=== PATIENT | female | born 1985 | race Caucasian/White ===

== ENCOUNTER 2016-09-18 15:35 | Inpatient (IN) | payer BC, MEDICAID ==
[2016-09-18 16:21] LABS: APPEARANCE,URINE SLIGHTLY-CLOUDY; BILIRUBIN,URINE NEGATIVE (NEGATIVE); GLUCOSE, URINE NEGATIVE (NEGATIVE); KETONES,URINE NEGATIVE (NEGATIVE); LEUKOCYTE ESTERASE,URINE NEGATIVE (NEGATIVE); NITRITE,URINE NEGATIVE (NEGATIVE); PROTEIN,URINE 30 mg/dL (NEGATIVE); URINE SPECIFIC GRAVITY 1.023; UROBILINOGEN,URINE NEGATIVE mg/dL (<2.0)
[2016-09-18 16:35] LABS: ABSOLUTE EOSINOPHILS # (AUTO) 0.1 10^3/uL (0.0-0.6); ABSOLUTE LYMPHOCYTES (AUTO) 1.7 10^3/uL (0.5-4.7); ABSOLUTE MONOCYTES (AUTO) 0.5 10^3/uL (0.1-1.4); ABSOLUTE NEUT (AUTO) 7.9 10^3/uL (1.7-8.2); BASOPHILS % (AUTO) 0.4 % (0-2); EOSINOPHILS % (AUTO) 0.7 % (0-6); HEMATOCRIT 31.9 % (36.0-47.0); HEMOGLOBIN 10.9 g/dL (12.0-15.5); HGB HCT DIFFERENCE 0.8; LYMPHOCYTES % (AUTO) 16.9 % (13-45); MEAN CORPUSCULAR HEMOGLOBIN 30.2 pg (27.0-33.4); MEAN CORPUSCULAR HGB CONC 34.4 g/dL (32.0-36.0); MEAN CORPUSCULAR VOLUME 88 fl (80-97); MONOCYTES % (AUTO) 4.7 % (3-13); RED BLOOD COUNT 3.62 10^6/uL (3.72-5.28); RED CELL DISTRIBUTION WIDTH 13.3 % (11.5-14.0); SEGMENTED NEUTROPHILS % (AUTO) 77.3 % (42-78); WHITE BLOOD COUNT 10.2 10^3/uL (4.0-10.5)
[2016-09-18 16:36] LABS: URINE BARBITURATES SCREEN NEGATIVE; URINE METHADONE SCREEN NEGATIVE; URINE OPIATES LOW NEGATIVE; URINE PHENCYCLIDINE SCREEN NEGATIVE
[2016-09-18] MEDS ORDERED: OXYTOCIN/NORMAL SALINE 20 UNIT/1,000 ML RTUINJ ONE (17:07)
--- NOTE | 2016-09-18 18:01 | L&D Flow Sheet ---
LD Flowsheet Datetime Report Generated by CPN: 09/18/2016 18:00 Datetime: 09/18/2016 17:51 NBP Sys/Kayleigh/Mean (mmHg): 105 (QS system process) : 57 (QS system process) : 75 (QS system process) Pulse: 86 (QS system process) Datetime: 09/18/2016 17:28 I/O Interventions: Up to BR (Beth Brad, RN) Datetime: 09/18/2016 17:21 NBP Sys/Kayleigh/Mean (mmHg): 104 (QS system process) : 62 (QS system process) : 78 (QS system process) Pulse: 87 (QS system process) Datetime: 09/18/2016 17:15 Monitor Mode: External; Palpation (Beth Salinas RN) Frequency (min): none (Beth Salinas, RN) Resting Tone (Palpate): Relaxed (Beth Salinas RN) Monitor Mode: External US (Beth Salinas RN) FHR Baseline Rate : 130 (Beth Salinas RN) FHR Baseline Changes: No Baseline Change (Beth Salinas RN) Variability: Moderate 6-25 bpm (Beth Salinas RN) Accelerations: 15X15 (Beth Salinas RN) Decelerations: None (Beth Salinas RN) Pitocin (milliunit): Pitocin Started (milliunits) @ 2; Pitocin 20 Units in 1000ml NS (Beth Salinas RN) Datetime: 09/18/2016 17:06 NBP Sys/Kayleigh/Mean (mmHg): 109 (QS system process) : 62 (QS system process) : 79 (QS system process) Pulse: 86 (QS system process) Datetime: 09/18/2016 16:51 NBP Sys/Kayleigh/Mean (mmHg): 102 (QS system process) : 55 (QS system process) : 74 (QS system process) Pulse: 84 (QS system process) Datetime: 09/18/2016 16:45 Monitor Mode: External; Palpation (Beth Salinas RN) Frequency (min): none (Beth Salinas RN) Resting Tone (Palpate): Relaxed (Beth Brad, RN) Monitor Mode: External US (Beth Salinas RN) FHR Baseline Rate : 130 (Beth Salinas, RN) FHR Baseline Changes: No Baseline Change (Beth Salinas RN) Variability: Moderate 6-25 bpm (Beth Salinas, RN) Accelerations: 15X15 (Beth Salinas, RN) Decelerations: None (Beth Salinas, RN) Datetime: 09/18/2016 16:43 Monitor Interventions for FHR: Ultrasound Adjusted (Beth Salinas RN) Communication Comments: Order received from Rhonda Conley CNM to start Pitocin 20 units in 1 L NS at 2 milliunits/min. Increase by 2 milliunits/min to a max of 20 milliunits/min or until adequate labor is reached (Beth Salinas RN) Datetime: 09/18/2016 16:38 NBP Sys/Kayleigh/Mean (mmHg): 105 (QS system process) : 65 (QS system process) : 79 (QS system process) Pulse: 87 (QS system process) Datetime: 09/18/2016 16:28 Resting Tone (Palpate): Relaxed (Beth Salinas RN) Monitor Mode: External US (Beth Salinas RN) Pain Scale: 0 (Beth Salinas RN) Pain Presence: None/Denies (Beth Salinas RN) Pain Type: N/A (Beth Salinas RN) Pain Goal: 1 (Beth Salinas RN) Pain Relief Measures: Comfort Measures (Beth Salinas RN) Membrane Status: Ruptured (Beth Salinas RN) Membranes Ruptured Date/Time: 09/18/2016 00:01 (Beth Salinas RN) Membranes Rupture Method: Spontaneous (Beth Salinas RN) Amniotic Fluid Color: Clear (Beth Salinas, RN) Amniotic Fluid Amount: Small (Beth Salinas RN) Amniotic Fluid Odor: Normal (Beth Salinas, RN) Vaginal Bleeding: None (Beth Salinas, SILVANO) Level of Consciousness: Fully Conscious (Beth Salinas, SILVANO) DTR's/Clonus: DTRs 2+; No Clonus (Beth Salinas, SILVANO) Headache: Denies (Beth Salinas, SILVANO) Breath Sounds, Left: Clear and Equal (Beth Salinas RN) Breath Sounds, Right: Clear and Equal (Beth Salinas, RN) Nausea/Vomiting: Denies (Beth Salinas, SILVANO) RUQ Epigastric Pain: Denies (Beth Salinas, RN) IV/Blood Work: IV Infusing per Order (Beth Salinas, SILVANO) Oxygen Method: Room Air (Beth Salinas RN) Patient Position/Activity: Left Tilt (Beth Salinas RN) I/O Interventions: Clear Liquids Given (Beth Salinas, SILVANO) Instructional Method: Verbal (Beth Salinas RN) Plan of Care: Plan of Care Discussed; Vaginal Delivery; Labor; Induction (Beth Salinas RN) Unit Routine: [place] to Room; Call [place]; Bed; Visiting Policy; Waiting Areas; Infant Security; Phone/Cell Phone Use; Photography; Unit Personnel; Handwashing; Monitoring (Beth Salinas RN) Labor/Induction: Labor Stages; Cervical Ripening (Beth Salinas RN) Pain Management: IV Narcotics (Beth Salinas RN) Datetime: 09/18/2016 16:26 Procedures: Consents Signed (Beth Salinas RN) Datetime: 09/18/2016 16:20 IV/Blood Work: IV Infusing per Order (Beth Salinas RN) IV/Blood Work: IV Started; IV Bolus Started (Beth Salinas RN) Datetime: 09/18/2016 16:17 IV/Blood Work: Labs Drawn (Beth Brad, RN) Datetime: 09/18/2016 16:15 Monitor Mode: External; Palpation (Beth Brad, RN) Frequency (min): none (Beth Brad, RN) Resting Tone (Palpate): Relaxed (Beth Brad, RN) Monitor Mode: External US (Beth Brad, RN) FHR Baseline Rate : 130 (Beth Brad, RN) FHR Baseline Changes: No Baseline Change (Beth Brad, RN) Variability: Moderate 6-25 bpm (Beth Brad, RN) Accelerations: 15X15 (Beth Brad, RN) Decelerations: None (Beth Brad, RN) Datetime: 09/18/2016 16:03 Communication Comments: patient sent from [facility] by Dr. Donnelly for positive Nitrazine, positive Fern, and pooling. Orders received for direct admission. Cervix in office was 2cm. Order received to start Pitocin without rechecking cervix (Beth Salinas RN)
[2016-09-18] MEDS ORDERED: AMPICILLIN SOD INJ 2 GM VIAL ONE (18:04)
[2016-09-18] MEDS ORDERED: RINGERS SOLUTION,LACTATED 1,000 ML IV PRN (18:12)
[2016-09-18] MEDS ORDERED: RINGERS SOLUTION,LACTATED 300 ML IV ONE (18:12)
[2016-09-18] MEDS ORDERED: OXYTOCIN/NORMAL SALINE 1,000 ML IV PRN (18:12)
--- NOTE | 2016-09-18 20:01 | L&D Flow Sheet ---
LD Flowsheet Datetime Report Generated by CPN: 09/18/2016 20:00 Datetime: 09/18/2016 19:52 NBP Sys/Kayleigh/Mean (mmHg): 94 (QS system process) : 58 (QS system process) : 72 (QS system process) Pulse: 75 (QS system process) LaborFlag: Antepartum (QS system process) Datetime: 09/18/2016 19:45 Stage of : Antepartum (Martha Azaleaichiwarner RN) Monitor Mode: External (Martha Errichiello, RN) Frequency (min): 2-4 (Martha Schwartz RN) Quality: Mild/Moderate (Martha Schwartz RN) Duration (sec): 50-70 (Martha Schwartz RN) Resting Tone (Palpate): Relaxed (Martha Schwartz RN) Monitor Mode: External US (Martha Schwartz RN) FHR Baseline Rate : 130 (Martha Schwartz RN) FHR Baseline Changes: No Baseline Change (Martha Schwartz RN) Variability: Moderate 6-25 bpm (Martha Schwartz RN) Accelerations: 15X15 (Martha Schwartz RN) Decelerations: None (Martha Schwartz RN) Pitocin (milliunit): Pitocin Remains (milliunits) @ 10 (Martha Schwartz RN) Communication: RN at Bedside; RN Reviewed Strip (Martha Schwartz RN) Datetime: 09/18/2016 19:37 NBP Sys/Kayleigh/Mean (mmHg): 100 (QS system process) : 62 (QS system process) : 74 (QS system process) Pulse: 71 (QS system process) LaborFlag: Antepartum (QS system process) Datetime: 09/18/2016 19:30 Stage of : Antepartum (Martha Schwartz RN) Temperature (F): 98.0 (Martha Schwartz RN) Temperature (C): 36.7 (QS system process) Frequency (min): 2-3 (Martha Schwartz RN) Duration (sec): 60-70 (Martha Schwartz RN) Monitor Mode: External US (Martha Schwartz RN) FHR Baseline Rate : 135 (Martha Schwartz RN) FHR Baseline Changes: No Baseline Change (Martha Schwartz RN) Variability: Moderate 6-25 bpm (Martha Schwartz RN) Accelerations: 15X15 (Martha Schwartz RN) Decelerations: None (Martha Schwartz RN) Level of Consciousness: Fully Conscious (Martha Schwartz RN) DTR's/Clonus: DTRs 2+; No Clonus (Martha Schwartz RN) Headache: Denies (Martha Schwartz RN) Breath Sounds, Left: Clear and Equal (Martha Schwartz RN) Breath Sounds, Right: Clear and Equal (Martha Schwartz RN) Nausea/Vomiting: Denies (Martha Schwartz RN) RUQ Epigastric Pain: Denies (Martha Schwartz RN) Pitocin (milliunit): Pitocin Increased to (milliunits) @ 10 (Martha Schwartz RN) Pitocin (milliunit): Pitocin Increased to (milliunits) @ (Annotations: 10) (Martha Schwartz RN) I/O Interventions: Up to BR (Martha Schwartz RN) Communication: RN at Bedside; RN Reviewed Strip (Martha Schwartz RN) LaborFlag: Antepartum (QS system process) Datetime: 09/18/2016 19:21 NBP Sys/Kayleigh/Mean (mmHg): 100 (QS system process) : 55 (QS system process) : 70 (QS system process) Pulse: 69 (QS system process) LaborFlag: Antepartum (QS system process) Datetime: 09/18/2016 19:15 Stage of : Antepartum (Martha Schwartz RN) Monitor Mode: External (Martha Schwartz RN) Frequency (min): x1 (Martha Schwartz RN) Quality: Mild (Martha Schwartz RN) Duration (sec): 90 (Martha Schwartz RN) Resting Tone (Palpate): Relaxed (Martha Schwartz RN) Monitor Mode: External US (Martha Schwartz RN) FHR Baseline Rate : 135 (Martha Schwartz RN) FHR Baseline Changes: No Baseline Change (Martha Schwartz RN) Variability: Moderate 6-25 bpm (Martha Schwartz RN) Accelerations: 15X15 (Martha Schwartz RN) Decelerations: None (Martha Schwartz RN) Pain Presence: Intermittent (Martha Schwartz RN) Pain Type: Contraction (Martha Schwartz RN) Pain Location: Abdomen (Martha Schwartz RN) Pain Relief Measures: Comfort Measures (Martha Schwartz RN) Pain Coping: Talking Through Contractions (Martha Schwartz RN) Pitocin (milliunit): Pitocin Remains (milliunits) @ 8 (Martha Schwartz RN) Patient Position/Activity: Left Tilt; Semi-Fowlers (Martha Schwartz RN) Comfort Measures: Breathing/Relaxation; Family Support (Martha Schwartz RN) Communication: RN Reviewed Strip (Martha Schwartz RN) LaborFlag: Antepartum (QS system process) Datetime: 09/18/2016 19:07 NBP Sys/Kayleigh/Mean (mmHg): 90 (QS system process) : 55 (QS system process) : 67 (QS system process) Pulse: 73 (QS system process) Datetime: 09/18/2016 19:01 Monitor Interventions for UA: [place] Adjusted (Beth Salinas RN) Datetime: 09/18/2016 19:00 Monitor Mode: External; Palpation (Beth Salinsa RN) Quality: Mild (Beth Salinas RN) Duration Criteria: Less than Two 120 Second Contractions (Beth Salinas RN) Pattern: Normal: <= 5 Contractions in 10 Minutes (Beth Salinas RN) Resting Tone (Palpate): Relaxed (Beth Salinas RN) Contraction Comments: difficult to trace contractions, RN at bedside palpating abdomen and adjusting monitor (Beth Salinas RN) Monitor Mode: External US (Beth Salinas RN) FHR Baseline Rate : 130 (Beth Salinas RN) FHR Baseline Changes: No Baseline Change (Beth Salinas RN) Variability: Moderate 6-25 bpm (Beth Salinas RN) Accelerations: 15X15 (Beth Salinas RN) Decelerations: None (Beth Salinas RN) Pitocin (milliunit): Pitocin Increased to (milliunits) @ 8 (Beth Salinas RN) Datetime: 09/18/2016 18:51 NBP Sys/Kayleigh/Mean (mmHg): 98 (QS system process) : 61 (QS system process) : 74 (QS system process) Pulse: 73 (QS system process) Datetime: 09/18/2016 18:45 Monitor Mode: External; Palpation (Beth Salinas RN) Frequency (min): 7-8 (Beth Salinas RN) Quality: Mild (Beth Salinas, SILVANO) Duration (sec): 70-80 (Beth Salinas, SILVANO) Duration Criteria: Less than Two 120 Second Contractions (Beth Salinas RN) Pattern: Normal: <= 5 Contractions in 10 Minutes (Beth Salinas RN) Resting Tone (Palpate): Relaxed (Beth Salinas, RN) Monitor Mode: External US (Beth Salinas, SILVANO) FHR Baseline Rate : 130 (Beth Salinas RN) FHR Baseline Changes: No Baseline Change (Beth Salinas RN) Variability: Moderate 6-25 bpm (Beth Salinas RN) Accelerations: 15X15 (Beth Salinas, RN) Decelerations: None (Beth Salinas, SILVANO) Pitocin (milliunit): Pitocin Remains (milliunits) @ (Annotations: 6) (Beth Salinas RN) Datetime: 09/18/2016 18:36 NBP Sys/Kayleigh/Mean (mmHg): 92 (QS system process) : 52 (QS system process) : 66 (QS system process) Pulse: 81 (QS system process) Datetime: 09/18/2016 18:30 Monitor Mode: External; Palpation (Beth Salinas RN) Frequency (min): 2.5-8 (Beth Salinas RN) Quality: Mild (Beth Salinas RN) Duration (sec): 70-80 (Beth Salinas RN) Duration Criteria: Less than Two 120 Second Contractions (Beth Salinas RN) Pattern: Normal: <= 5 Contractions in 10 Minutes (Beth Salinas RN) Resting Tone (Palpate): Relaxed (Beth Salinas RN) Monitor Mode: External US (Beth Salinas RN) FHR Baseline Rate : 135 (Beth Salinas RN) FHR Baseline Changes: No Baseline Change (Beth Salinas, SILVANO) Variability: Moderate 6-25 bpm (Beth Salinas RN) Accelerations: 15X15 (Beth Salinas RN) Decelerations: None (Beth Salinas, SILVANO) Pitocin (milliunit): Pitocin Remains (milliunits) @ (Annotations: 6) (Beth Salinas RN) Datetime: 09/18/2016 18:20 I/O Interventions: Up to BR (Beth Salinas, SILVANO) Datetime: 09/18/2016 18:15 Monitor Mode: External; Palpation (Beth Salinas RN) Frequency (min): 2-6 (Beth Salinas RN) Quality: Mild (Beth Salinas, SILVANO) Duration (sec): 60-110 (Beth Salinas, SILVANO) Duration Criteria: Less than Two 120 Second Contractions (Beth Salinas, SILVANO) Pattern: Normal: <= 5 Contractions in 10 Minutes (Beth Salinas, SILVANO) Resting Tone (Palpate): Relaxed (Beth Salinas, RN) Monitor Mode: External US (Beth Salinas, RN) FHR Baseline Rate : 130 (Beth Salinas, RN) FHR Baseline Changes: No Baseline Change (Beth Salinas, SILVANO) Variability: Moderate 6-25 bpm (Beth Salinas, RN) Accelerations: 15X15 (Beth Salinas, RN) Decelerations: None (Beth Salinas, RN) Pitocin (milliunit): Pitocin Increased to (milliunits) @ (Annotations: 6) (Beth Salinas RN) Antibiotics: Ampicillin IV 2 Gm (Beth Salinas, RN) Datetime: 09/18/2016 18:08 NBP Sys/Kayleigh/Mean (mmHg): 113 (QS system process) : 59 (QS system process) : 73 (QS system process) Pulse: 80 (QS system process) Datetime: 09/18/2016 18:00 Monitor Mode: External; Palpation (Beth Salinsa RN) Frequency (min): 2.5-3 (Beth Salinas RN) Quality: Mild (Beth Salinas RN) Duration (sec): 80-90 (Beth Salinas RN) Duration Criteria: Less than Two 120 Second Contractions (Beth Salinas RN) Pattern: Normal: <= 5 Contractions in 10 Minutes (Beth Salinas RN) Resting Tone (Palpate): Relaxed (Beth Salinas RN) Monitor Mode: External US (Beth Salinas RN) FHR Baseline Rate : 135 (Beth Salinas RN) FHR Baseline Changes: No Baseline Change (Beth Salinas RN) Variability: Moderate 6-25 bpm (Beth Salinas RN) Accelerations: 15X15 (Beth Salinas RN) Decelerations: None (Beth Salinas RN) Pitocin (milliunit): Pitocin Remains (milliunits) @ (Annotations: 4) (Beth Salinas RN)
--- NOTE | 2016-09-18 22:01 | L&D Flow Sheet ---
LD Flowsheet Datetime Report Generated by CPN: 09/18/2016 22:00 Datetime: 09/18/2016 21:51 NBP Sys/Kayleigh/Mean (mmHg): 84 (QS system process) : 48 (QS system process) : 61 (QS system process) Pulse: 65 (QS system process) LaborFlag: Antepartum (QS system process) Datetime: 09/18/2016 21:45 Stage of : Antepartum (Martha Azaleaichiwarner, RN) Monitor Mode: External (Martha Errichiello, RN) Frequency (min): 3 (Martha Schwartz RN) Quality: Mild/Moderate (Martha Schwartz RN) Duration (sec): 40-70 (Martha Schwartz RN) Resting Tone (Palpate): Relaxed (Martha Schwartz RN) Monitor Mode: External US (Martha Schwartz RN) Monitor Interventions for FHR: Ultrasound Adjusted (Martha Schwartz RN) FHR Baseline Rate : 135 (Martha Schwartz RN) FHR Baseline Changes: No Baseline Change (Martha Schwartz RN) Variability: Moderate 6-25 bpm (Martha Schwartz RN) Accelerations: 15X15 (Martha Schwartz RN) Decelerations: None (Martha Schwartz RN) Comments: RN at b/s adjusting US (Martha Schwartz RN) Pitocin (milliunit): Pitocin Remains (milliunits) @ 18 (Martha Schwartz RN) Patient Position/Activity: Left Lateral; Peanut Ball (Martha Schwartz RN) Communication: RN at Bedside; RN Reviewed Strip (Martha Schwartz RN) Datetime: 09/18/2016 21:36 NBP Sys/Kayleigh/Mean (mmHg): 84 (QS system process) : 53 (QS system process) : 64 (QS system process) Pulse: 65 (QS system process) LaborFlag: Antepartum (QS system process) Datetime: 09/18/2016 21:30 Stage of : Antepartum (Martha Schwartz RN) Monitor Mode: External (Martha Schwartz RN) Frequency (min): 3-4 (Martha Schwartz RN) Quality: Mild/Moderate (Martha Schwartz RN) Duration (sec): 50-70 (Martha Schwartz RN) Resting Tone (Palpate): Relaxed (Martha Schwartz RN) Monitor Mode: External US (Martha Schwartz RN) Monitor Interventions for FHR: Ultrasound Adjusted (Martha Schwartz RN) FHR Baseline Rate : 150 (Martha Schwartz RN) FHR Baseline Changes: No Baseline Change (Martha Schwartz RN) Variability: Moderate 6-25 bpm (Martha Schwartz RN) Accelerations: None (Martha Schwartz RN) Decelerations: None (Martha Schwartz RN) Comments: RN at b/s adjusting US (Martha Schwartz RN) Pain Presence: Intermittent (Martha Schwartz RN) Pain Type: Contraction (Martha Schwartz RN) Pain Location: Abdomen (Martha Schwartz RN) Pain Relief Measures: Comfort Measures (Martha Schwartz RN) Pain Coping: Talking Through Contractions (Martha Schwartz RN) Pitocin (milliunit): Pitocin Increased to (milliunits) @ 18 (Martha Schwartz RN) Patient Position/Activity: Left Lateral; Peanut Ball (Martha Schwartz RN) Comfort Measures: Breathing/Relaxation; Coaching; Family Support (Martha Schwartz RN) Communication: RN at Bedside; RN Reviewed Strip (MEME Adam LaborFlag: Antepartum (QS system process) Datetime: 09/18/2016 21:21 NBP Sys/Kayleigh/Mean (mmHg): 92 (QS system process) : 61 (QS system process) : 72 (QS system process) Pulse: 72 (QS system process) LaborFlag: Antepartum (QS system process) Datetime: 09/18/2016 21:15 Stage of : Antepartum (Martha Schwartz RN) Monitor Mode: External (Martha Schwartz RN) Monitor Interventions for UA: [place] Adjusted (Martha Schwartz RN) Quality: Mild/Moderate (Martha Schwartz RN) Resting Tone (Palpate): Relaxed (Martha Schwartz RN) Contraction Comments: UTD accurate UC's as RN at b/s adjusting TOCO (Martha Schwartz RN) Monitor Mode: External US (Martha Schwartz RN) Monitor Interventions for FHR: Ultrasound Adjusted (Martha Schwartz RN) FHR Baseline Rate : 145 (Martha Schwartz RN) FHR Baseline Changes: No Baseline Change (Martha Schwartz RN) Variability: Moderate 6-25 bpm (Martha Schwartz RN) Accelerations: 15X15 (Martha Schwartz RN) Decelerations: None (Martha Schwartz RN) Pitocin (milliunit): Pitocin Remains (milliunits) @ 16 (Martha Schwartz RN) Communication: RN at Bedside; RN Reviewed Strip (Martha Schwartz RN) Datetime: 09/18/2016 21:06 NBP Sys/Kayleigh/Mean (mmHg): 100 (QS system process) : 67 (QS system process) : 79 (QS system process) Pulse: 66 (QS system process) LaborFlag: Antepartum (QS system process) Datetime: 09/18/2016 21:03 Patient Position/Activity: Left Lateral; Peanut Ball (Martha Schwartz RN) Datetime: 09/18/2016 21:00 Stage of : Antepartum (Martha Schwartz RN) Monitor Mode: External (Martha Schwartz RN) Frequency (min): 3-4 (Martha Schwartz RN) Quality: Mild/Moderate (Martha Schwartz RN) Duration (sec): 60-80 (Martha Schwartz RN) Resting Tone (Palpate): Relaxed (Martha Schwartz RN) Monitor Mode: External US (Martha Schwartz RN) Monitor Interventions for FHR: Ultrasound Adjusted (Martha Schwartz RN) FHR Baseline Rate : 125 (Martha Schwartz RN) FHR Baseline Changes: No Baseline Change (Martha Schwartz RN) Variability: Moderate 6-25 bpm (Martha Schwartz RN) Accelerations: 15X15 (Martha Schwartz RN) Decelerations: None (Martha Schwartz RN) Pain Presence: Intermittent (Martha Schwartz RN) Pain Type: Contraction (Martha Schwartz RN) Pain Relief Measures: Comfort Measures (Martha Schwartz RN) Pain Coping: Talking Through Contractions (Martha Schwartz RN) Pitocin (milliunit): Pitocin Increased to (milliunits) @ 16 (Martha Schwartz RN) Patient Position/Activity: Left Tilt; Semi-Fowlers (Martha Schwartz RN) Comfort Measures: Breathing/Relaxation; Coaching; Family Support (Martha Schwartz RN) Communication: RN at Bedside; RN Reviewed Strip (Martha Schwartz RN) LaborFlag: Antepartum (QS system process) Datetime: 09/18/2016 20:51 NBP Sys/Kayleigh/Mean (mmHg): 97 (QS system process) : 62 (QS system process) : 76 (QS system process) Pulse: 74 (QS system process) LaborFlag: Antepartum (QS system process) Datetime: 09/18/2016 20:45 Stage of : Antepartum (Martha Schwartz RN) Monitor Mode: External (Martha Schwartz RN) Frequency (min): 2-3 (Martha Schwartz RN) Quality: Mild/Moderate (Martha Schwartz RN) Duration (sec): 40-70 (Martha Schwartz RN) Resting Tone (Palpate): Relaxed (Martha Schwartz RN) Monitor Mode: External US (Mratha Schwartz RN) FHR Baseline Rate : 125 (Martha Schwartz RN) FHR Baseline Changes: No Baseline Change (Martha Schwartz RN) Variability: Moderate 6-25 bpm (Martha Schwartz RN) Accelerations: 15X15 (Martha Schwartz RN) Decelerations: None (Martha Schwartz RN) Pitocin (milliunit): Pitocin Remains (milliunits) @ 14 (Martha Schwartz RN) Communication: RN Reviewed Strip (Martha Schwartz RN) Datetime: 09/18/2016 20:37 NBP Sys/Kayleigh/Mean (mmHg): 93 (QS system process) : 62 (QS system process) : 73 (QS system process) Pulse: 84 (QS system process) LaborFlag: Antepartum (QS system process) Datetime: 09/18/2016 20:30 Stage of : Antepartum (Martha Schwartz RN) FHR Baseline Rate : 140 (Martha Schwartz RN) Pitocin (milliunit): Pitocin Increased to (milliunits) @ 14 (Martha Schwartz RN) Communication: RN at Bedside; RN Reviewed Strip (Martha Schwartz RN) Datetime: 09/18/2016 20:22 NBP Sys/Kayleigh/Mean (mmHg): 98 (QS system process) : 57 (QS system process) : 72 (QS system process) Pulse: 75 (QS system process) LaborFlag: Antepartum (QS system process) Datetime: 09/18/2016 20:15 Stage of : Antepartum (Martha Schwartz RN) Monitor Mode: External (Martha Schwartz RN) Monitor Interventions for UA: [place] Adjusted (Martha Schwartz RN) Frequency (min): 1.5-3 (Martha Schwartz RN) Quality: Mild/Moderate (Martha Schwartz RN) Resting Tone (Palpate): Relaxed (Martha Schwartz RN) Monitor Mode: External US (Martha Schwartz RN) FHR Baseline Rate : 135 (Martha Schwartz RN) FHR Baseline Changes: No Baseline Change (Martha Schwartz RN) Variability: Moderate 6-25 bpm (Martha Schwartz RN) Accelerations: 15X15 (Martha Schwartz RN) Decelerations: None (Martha Schwartz RN) Pitocin (milliunit): Pitocin Remains (milliunits) @ 12 (Martha Schwartz RN) Patient Position/Activity: Left Tilt; Semi-Fowlers (Martha Schwartz RN) Communication: RN at Bedside; RN Reviewed Strip (Martha Schwartz RN) Datetime: 09/18/2016 20:06 NBP Sys/Kayleigh/Mean (mmHg): 109 (QS system process) : 59 (QS system process) : 80 (QS system process) Pulse: 71 (QS system process) LaborFlag: Antepartum (QS system process) Datetime: 09/18/2016 20:00 Stage of : Antepartum (Martha Schwartz RN) Monitor Mode: External (Martha Schwartz RN) Frequency (min): 2-4 (Martha Schwartz RN) Quality: Mild/Moderate (Martha Schwartz RN) Duration (sec): 70-100 (Martha Schwartz RN) Resting Tone (Palpate): Relaxed (Martha Schwartz RN) Monitor Mode: External US (Martha Schwartz RN) Monitor Interventions for FHR: Ultrasound Adjusted (Martha Schwartz RN) FHR Baseline Rate : 135 (Martha Schwartz RN) FHR Baseline Changes: No Baseline Change (Martha Schwartz RN) Variability: Moderate 6-25 bpm (Martha Schwartz RN) Accelerations: 15X15 (Martha Schwartz RN) Decelerations: None (Martha Schwartz RN) Pain Scale: 2 (Martha Schwartz RN) Pain Presence: Intermittent (Martha Schwartz RN) Pain Type: Contraction (Martha Schwartz RN) Pain Location: Abdomen (Martha Schwartz RN) Pain Goal: 1 (Martah Schwartz RN) Pain Relief Measures: Comfort Measures (Martha Schwartz RN) Pain Coping: Talking Through Contractions (Martha Schwartz RN) Pain Assessment Comments: with UC's (Martha Schwartz RN) Pitocin (milliunit): Pitocin Increased to (milliunits) @ 12 (Martha Schwartz RN) Patient Position/Activity: Left Tilt; Semi-Fowlers (Martha Schwartz RN) Comfort Measures: Breathing/Relaxation; Coaching; Aromatherapy (Martha Schwartz RN) Communication: RN at Bedside; RN Reviewed Strip (Martha Schwartz RN) LaborFlag: Antepartum (QS system process)
[2016-09-18] MEDS ORDERED: AMPICILLIN SOD INJ 1 GM VIAL ONE (22:13)
[2016-09-18] MEDS: AMPICILLIN SOD INJ 1 GM VIAL IV SCH (22:24)
[2016-09-18] MEDS ORDERED: PROMETHAZINE HCL INJ 25 MG/1 ML VIAL IV ONE (23:55)
[2016-09-18] MEDS ORDERED: NALBUPHINE HCL INJ 10 MG/1 ML AMPULE INJ ONE (23:56)
[2016-09-18] MEDS ORDERED: PROMETHAZINE HCL INJ 25 MG/1 ML VIAL ONE (23:58)
[2016-09-18] MEDS ORDERED: NALBUPHINE HCL INJ 10 MG/1 ML AMPULE ONE (23:59)
[2016-09-19] MEDS ORDERED: BUPIVACAINE HCL 0.25 % INJ/PF (2.5 MG/1 ML) 30 ML VIAL ONE (02:02)
[2016-09-19] MEDS ORDERED: EPHEDRINE SULFATE INJ 50 MG/1 ML AMPULE ONE (02:02)
[2016-09-19] MEDS ORDERED: FENTANYL/BUPIVACAINE/NS/PF 0 MCG/0 ML RTUINJ EPI ONE (02:02)
[2016-09-19] MEDS ORDERED: MISOPROSTOL 0.2 MG TABLET ONE (02:04)
[2016-09-19] MEDS ORDERED: OXYTOCIN/NORMAL SALINE 20 UNIT/1,000 ML RTUINJ ONE (02:04)
[2016-09-19] MEDS ORDERED: LIDOCAINE 1% INJ-PF (10 MG/ML) 30 ML SDV ONE (02:04)
--- NOTE | 2016-09-19 04:00 | Delivery Summary ---
Del Sum A-C Datetime Report Generated by CPN: 09/19/2016 03:59 ADMISSION DATA Chief Complaint: Suspected Ruptured Membranes Admission Impression: Term, Intrauterine Admit Provider Comments: 31 yo admitted from office for SROM- clear and pooling since midnight, now 17 hours afebrile, reactive nst EDC 10/01/16 EGA 38.1 abdomen nontender FHTs 120s average variability uterine irritability start pitocin plan of care reviewed with pt and family (Annotations: Data stored by CPN on behalf of user) DELIVERY PERSONNEL Delivery Doctor:: Susannah Hernández MD Labor and Delivery Nurse:: Martha Rios RNforestry professor Nurse:: Anastasia Gunn RN Intelligence Agent/RADIO ANTENNA INSTALLER: Whitney Bonilla CNA MATERNAL INFORMATION Delivery Anesthesia: None Medications After Delivery: Pitocin Bolus-Please Comment Meds After Delivery Comment: Pitocin 20 units Bolus Estimated Blood Loss (ml): 300 Maternal Complications: Premature Rupture of Membranes Provider Comments: Precipitous delivery, Nurse controlled in bed. over intact perineum, no lacs. spontaneous intact placenta 3vc. no complications except prolonged rupture of membranes LABOR SUMMARY EDC: 10/01/2016 00:00 No. Babies in Womb: 1 Attempted: No Labor Anesthesia: IV Sedation LABOR INFORMATION Reason for Induction: Premature Rupture of Membranes Onset of Labor: 09/18/2016 23:15 Complete Dilatation: 09/19/2016 02:15 Oxytocin: Augmentation Group B Beta Strep: Negative Antibiotics # of Doses: 2 Antibiotics Time of Last Dose: 2214 Name of Antibiotic Given: ampicillin Steroids Given: None Reason Steroids Not Administered: Not Applicable MEMBRANES Membranes Rupture Method: Spontaneous Rupture of Membranes: 09/18/2016 00:01 Length of Rupture (hr): 26.27 Amniotic Fluid Color: Clear Amniotic Fluid Amount: Small Amniotic Fluid Odor: Normal STAGES OF LABOR Stage 1 hr: 3 Stage 1 min: 0 Stage 2 hr: 0 Stage 2 min: 2 Stage 3 hr: 0 Stage 3 min: 6 Total Time in Labor hr: 3 Total Time in Labor min: 8 VAGINAL DELIVERY Episiotomy: None Laceration Extension: N/A Laceration Type: None Laceration Repair: Not Applicable Sponge Count Correct: N/A CSECTION DELIVERY Primary Indication: N/A Secondary Indication: N/A CSection Incidence: N/A Labor: N/A Elective: N/A CSection Incision: N/A BABY A INFORMATION Delivery Date/Time: 09/19/2016 02:17 Method of Delivery: Vaginal Born in Route : No : N/A Forceps: N/A Vacuum Extraction: N/A Shoulder Dystocia : No PRESENTATION/POSITION BABY A Presentation: Cephalic Cephalic Presentation: Vertex Vertex Position: Left Occipital Anterior Breech Presentation: N/A PLACENTA INFORMATION BABY A Placenta Delivery Time : 09/19/2016 02:23 Placenta Method of Delivery: Spontaneous Placenta Status: Delivered SCORES BABY A Heart Rate 1 min: >100 bpm Resp Effort 1 min: Good Cry Reflex Irritability 1 min: Cough or Sneeze or Pulls Away Muscle Tone 1 min: Some Flexion of Extremities Color 1 min: Body [place], Extremities Blue Resuscitation Effort 1 min: Tactile Stimulation SCORE 1 MIN: 8 Heart Rate 5 min: >100 bpm Resp Effort 5 min: Good Cry Reflex Irritability 5 min: Cough or Sneeze or Pulls Away Muscle Tone 5 min: Active Motion Color 5 min: Body [place], Extremities Blue SCORE 5 MIN: 9 INFORMATION BABY A Gestational Age at Delivery: 38.2 Gestational Status: Early Term- 37- 38.6 Weeks Outcome : Liveborn Condition : Stable Infant Sex: Female IDENTIFICATION BABY A Verification Date/Time: 09/19/2016 02:30 ID Band Number: [id number] Mother's Name Verified: Yes Infant RN Verifying : SILVANO Vazquez Additional Verifying Personnel: SILVANO Torres WEIGHT/LENGTH BABY A Infant Birthweight (gm): 3205 Infant Weight (lb): 7 Weight (oz): 1 Length (in): 19.75 Length (cm): 50.17 CORD INFORMATION BABY A No. Cord Vessels: 3 Nuchal Cord : Around Neck x1, Loose Cord Blood Taken: Yes-For Eval (Mom's Blood Type - or O+) Suction: Mouth ASSESSMENT BABY A Complications: None Physical Findings at Delivery: Within Normal Limits Infant Respirations: Appears Normal Skin to Skin: Yes Skin to Skin Time (min): 10 Automotive Brake Specialist/ALS Called : No Infant Care By: Ariadne Rios RN Transferred To: Remains with Mother BABY B INFORMATION : N/A SIGNATURES Signature: with User ID: [email or web address]
[2016-09-19] MEDS: AMPICILLIN SOD INJ 1 GM VIAL IV SCH (04:03)
--- NOTE | 2016-09-19 04:28 | Admission Physical ---
Datetime Report Generated by CPN: 09/19/2016 04:28 CURRENT ADMISSION Chief Complaint: Suspected Ruptured Membranes Admit Plan: Admit to Unit; Initiate Labor Augmentation Protocol ALLERGIES Medication Allergies: No Medication Allergies: No Known Allergies (09/18/2016) Latex: No Latex Allergies Food Allergies: denies Environmental Allergies: denies OBSTETRICAL HISTORY EDC: 10/01/2016 00:00 : 2 Para: 1 Gestational Diabetes: No Rh Sensitization: No Incompetent Cervix: No ARUN: No Infertility: No ART Treatment: No Uterine Anomaly: No IUGR: No Hx Previous C/S: No Macrosomia: No Hx Loss/Stillborn: No PIH: No Hx : No Placenta Previa/Abruption: No Depression/PP Depression: No PTL/PROM: No Post Hemorrhage: No Current Procedures: Ultrasound; NST Obstetrical History Comments: G1: viable female 2007 G2: current SEE RECORDS Alcohol: No Marijuana : No Cocaine: No Other Illicit Drugs: No Cigarettes: Never Smoker. [id number] MEDICAL HISTORY Diabetes: No Blood Transfusion: No Pulmonary Disease (Asthma, TB): No Breast Disease: No Hypertension: No Ship Keeper Surgery: No Heart Disease: No Hosp/Surgery: Yes Autoimmune Disorder: No Anesthetic Complications: No Kidney Disease: No Abnormal Pap Smear: No Neuro/Epilepsy: No Psychiatric Disorders: No Other Medical Diseases: No Hepatitis/Liver Disease: No Significant Family History: No Varicosities/Phlebitis: No Trauma/Violence : No Thyroid Dysfunction: Yes Medical History Comments: Hashimotos, Graves, and thyroid nodule, on no medications History of abnormal pap, colpo, positive HPV INFECTIOUS HISTORY Gonorrhea: No Genital Herpes: No Chlamydia: No Tuberculosis: No Syphilis: No Hepatitis: No HIV/AIDS Exposure: No Rash or Viral Illness: No HPV: Yes PHYSICAL EXAM General: Normal HEENT: Normal Neurologic: Normal Thyroid: Normal Heart: Normal Lungs: Normal Breast: Normal Back: Normal Abdomen: Normal Genitourinary Exam: Normal Extremities: Normal DTRs: Normal Pelvic Type: Adequate Vital Signs: Reviewed VAGINAL EXAM Dilatation: 2 Effacement: 50 MEMBRANES Membranes: Ruptured Amniotic Fluid Color: Clear FETUS A EGA: 38.1 Monitoring: External US FHR- Baseline: 120 Variability: Moderate 6-25bpm Accelerations: 15X15 Decelerations: None FHR Category: Category I Presentation: Vertex Admit Comment: 31 yo admitted from office for SROM- clear and pooling since midnight, now 17 hours afebrile, reactive nst EDC 10/01/16 EGA 38.1 abdomen nontender FHTs 120s average variability uterine irritability start pitocin plan of care reviewed with pt and family (Annotations: Data stored by [facility] on behalf of user) PLANS FOR LABOR AND DELIVERY Pain Management: Medications Feeding Preference: Breast Benefit of Breast Feed Discussed: Yes Circumcision: N/A INFORMED CONSENT Informed Consent Obtained: Vaginal Delivery; Risks, Benefits and Alternatives Discussed Assignment: Susannah Hernández MD Signature: with User ID: [email or web address] : with User ID: [email or web address]
[2016-09-19] MEDS ORDERED: MEASLES,MUMPS&RUBELLA VACC/PF 0.5 ML VIAL SUBCUT PRN (04:31)
[2016-09-19] MEDS ORDERED: OXYTOCIN/NORMAL SALINE 1,000 ML IV PRN (04:31)
[2016-09-19] MEDS ORDERED: DIPH/PERTUSS(ACELL)/TETANUS VAC/PF 0.5 ML SYR (>=10YO) IM PRN (04:31)
[2016-09-19] MEDS ORDERED: ACETAMINOPHEN WITH CODEINE #3 TABLET PO PRN ×2 (04:31)
[2016-09-19] MEDS ORDERED: DIBUCAINE 1% OINTMENT 28 GM TP PRN (04:31)
[2016-09-19] MEDS ORDERED: BENZOCAINE/MENTHOL AEROSOL SPRAY 56 ML TOP PRN (04:31)
[2016-09-19] MEDS ORDERED: ZOLPIDEM TARTRATE 5 MG TABLET PO PRN (04:31)
[2016-09-19] MEDS ORDERED: IBUPROFEN 800 MG TABLET ONE (05:55)
[2016-09-19] MEDS: IBUPROFEN 800 MG TABLET PO SCH ×3 (06:05→21:15)
--- NOTE | 2016-09-19 07:01 | L&D Flow Sheet ---
LD Flowsheet Datetime Report Generated by CPN: 09/19/2016 07:00 Datetime: 09/19/2016 04:17 Stage of : Recovery (Martha Errichiello, RN) Pain Scale: 0 (Martha Errichiello, RN) Pain Presence: None/Denies (Martha Errichiello, RN) Pain Type: N/A (Martha Errichiello, RN) Datetime: 09/19/2016 04:08 NBP Sys/Kayleigh/Mean (mmHg): 110 (QS system process) : 57 (QS system process) : 77 (QS system process) Pulse: 76 (QS system process) Datetime: 09/19/2016 04:00 Stage of : Recovery (Martha Tristanichiwarner, RN) Pain Scale: 0 (Martha Tristanichiello, RN) Pain Presence: None/Denies (Martha Errichiello, RN) Pain Type: N/A (Martha Errichiello, RN) Datetime: 09/19/2016 03:30 Stage of : Recovery (Martha Azaleaichiello, RN) Pain Scale: 0 (Martha Azaleaichiello, RN) Pain Presence: None/Denies (Martha Errichiello, RN) Pain Type: N/A (Martha Errichiello, RN) Datetime: 09/19/2016 03:15 Stage of : Recovery (Martha Azaleaichiello, RN) Pain Scale: 0 (Martha Azaleaichiello, RN) Pain Presence: None/Denies (Martha Errichiello, RN) Pain Type: N/A (Martha Errichiello, RN) Datetime: 09/19/2016 03:00 Stage of : Recovery (Martha Errichiello, RN) Pain Scale: 0 (Martha Errichiello, RN) Pain Presence: None/Denies (Martha Errichiello, RN) Pain Type: N/A (Martha Errichiello, RN) Datetime: 09/19/2016 02:45 Stage of : Recovery (Martha Errichiello, RN) Pain Scale: 0 (Martha Errichiello, RN) Pain Presence: None/Denies (Martha Azaleaichiello, RN) Pain Type: N/A (Martha Errichiello, RN) Datetime: 09/19/2016 02:30 Stage of : Recovery (Martha Azaleaichiwarner, RN) Pain Scale: 0 (Martha Azaleaichiello, RN) Pain Presence: None/Denies (Martha Errichiello, RN) Pain Type: N/A (Martha Errichiello, RN) Datetime: 09/19/2016 02:23 Stage of : Recovery (Martha Azaleaichiello, RN) Pain Scale: 0 (Martha Azaleaichiello, RN) Pain Presence: None/Denies (Martha Errichiello, RN) Pain Type: N/A (Martha Errichiello, RN) Datetime: 09/19/2016 02:17 Comments: of baby girl at 0217 (Martha Schwartz RN) Datetime: 09/19/2016 02:15 Stage of : Labor (Martha Schwartz RN) Monitor Mode: External (Martha Schwartz RN) Quality: Moderate to Strong (Martha Schwartz RN) Resting Tone (Palpate): Relaxed (Martha Schwartz RN) Contraction Comments: unable to determine UC's as pt sitting for epidural placement (Martha Schwartz RN) Monitor Mode: External US (Martha Schwartz RN) FHR Baseline Rate : 135 (Martha Schwartz RN) FHR Baseline Changes: No Baseline Change (Martha Schwartz RN) Variability: Moderate 6-25 bpm (Martha Schwartz RN) Accelerations: None (Martha Schwartz RN) Decelerations: None (Martha Schwartz RN) Comments: Unable to determine accurate FHR as pt sitting for epidural placement (Martha Schwartz RN) Dilatation (cm): 10.0 (Martha Schwartz RN) Effacement (%): 100 (Martha Schwartz RN) Station: 2 (Martha Schwartz RN) Exam by: C Fore RN (Martha Schwartz RN) Pitocin (milliunit): Pitocin Remains (milliunits) @ 20 (Martha Schwartz RN) Communication: RN at Bedside; RN Reviewed Strip (Martha Schwartz RN) Datetime: 09/19/2016 02:14 Communication Comments: Dr. Hernández called and informed of pt being complete. States she is on her way. (Anastasia Gunn RN) Datetime: 09/19/2016 02:13 Pulse: 99 (QS system process) SpO2 (%): 92 (QS system process) LaborFlag: Labor (QS system process) Datetime: 09/19/2016 02:11 Anesthesia Comments: Dr Gaston at b/s (Martha Errichiello, RN) Datetime: 09/19/2016 02:05 Communication Comments: Dr. Hernández notified of pt's cervical change. States she " will head over shortly" (Anastasia Luis A, RN) Datetime: 09/19/2016 02:01 Anesthesia Plans: Epidural (Martha Errichiello, RN) Anesthesia Comments: Dr Martinez called for epidural placement (Martha Errichiello, RN) Datetime: 09/19/2016 02:00 Stage of : Labor (Martha Schwartz RN) Monitor Mode: External (Martha Schwartz RN) Monitor Interventions for UA: [place] Adjusted (Martha Schwartz RN) Quality: Moderate to Strong (Martha Schwartz RN) Resting Tone (Palpate): Relaxed (Martha Schwartz RN) Contraction Comments: UTD ctx pattern (Martha Schwartz RN) Monitor Mode: External US (Martha Schwartz RN) Monitor Interventions for FHR: Ultrasound Adjusted (Martha Schwartz RN) FHR Baseline Rate : 120 (Martha Schwartz RN) FHR Baseline Changes: No Baseline Change (Martha Schwartz RN) Variability: Moderate 6-25 bpm (Martha Schwartz RN) Accelerations: 15X15 (Martha Schwartz RN) Decelerations: None (Martha Schwartz RN) Pitocin (milliunit): Pitocin Remains (milliunits) @ 20 (Martha Schwartz RN) Communication: RN at Bedside; RN Reviewed Strip (Martha Schwartz RN) Datetime: 09/19/2016 01:56 Procedure Verify: Correct Patient Identity; Correct Side and Site are Marked; Accurate Procedure Consent Form; Agreement on Procedure to be Done; Relevant Images and Results are Properly Labeled and Displayed; Safety Precautions Based on Patient History or Medication Use (Martha Schwartz RN) Anesthesia Plans: Epidural (Martha Schwartz RN) Datetime: 09/19/2016 01:55 Dilatation (cm): 5.5 (Martha Schwartz RN) Effacement (%): 90 (Martha Schwartz RN) Station: 0 (Martha Schwartz RN) Exam by: C Fore RN (Martha Schwartz RN) Datetime: 09/19/2016 01:51 NBP Sys/Kayleigh/Mean (mmHg): 117 (QS system process) : 59 (QS system process) : 81 (QS system process) Pulse: 92 (QS system process) LaborFlag: Labor (QS system process) Datetime: 09/19/2016 01:45 Stage of : Labor (Martha Schwartz RN) Monitor Mode: External (Martha Schwartz RN) Quality: Moderate (Martha Schwartz RN) Resting Tone (Palpate): Relaxed (Martha Schwartz RN) Monitor Mode: External US (Martha Schwartz RN) Monitor Interventions for FHR: Ultrasound Adjusted (Martha Schwartz RN) FHR Baseline Rate : 120 (Martha Schwartz RN) FHR Baseline Changes: No Baseline Change (Martha Schwartz RN) Variability: Marked >25 bpm (Martha Schwartz RN) Accelerations: 15X15 (Martha Schwartz RN) Decelerations: None (Martha Schwartz RN) Pitocin (milliunit): Pitocin Remains (milliunits) @ 20 (Martha Schwartz RN) Communication: RN at Bedside; RN Reviewed Strip (Martha Schwartz RN) Datetime: 09/19/2016 01:35 I/O Interventions: Up to BR (Martha Schwartz RN) Datetime: 09/19/2016 01:30 Stage of : Labor (Martha Schwartz RN) Monitor Mode: External (Martha Schwartz RN) Quality: Mild/Moderate (Martha Schwartz RN) Resting Tone (Palpate): Relaxed (Martha Schwartz RN) Monitor Mode: External US (Martha Schwartz RN) FHR Baseline Rate : 115 (Martha Schwartz RN) FHR Baseline Changes: No Baseline Change (Martha Schwartz RN) Variability: Moderate 6-25 bpm (Martha Schwartz RN) Accelerations: 15X15 (Martha Schwartz RN) Decelerations: None (Martha Schwartz RN) Pitocin (milliunit): Pitocin Remains (milliunits) @ 20 (Martha Schwartz RN) Communication: RN at Bedside; RN Reviewed Strip (Martha Schwartz RN) Datetime: 09/19/2016 01:21 NBP Sys/Kayleigh/Mean (mmHg): 94 (QS system process) : 50 (QS system process) : 67 (QS system process) Pulse: 71 (QS system process) LaborFlag: Labor (QS system process) Datetime: 09/19/2016 01:15 Stage of : Labor (Martha Schwartz RN) Monitor Mode: External (Martha Schwartz RN) Frequency (min): 1.5-2 (Martha Schwartz RN) Quality: Mild/Moderate (Martha Schwartz RN) Duration (sec): 60-80 (Martha Schwartz RN) Resting Tone (Palpate): Relaxed (Martha Schwartz RN) Monitor Mode: External US (Martha Schwartz RN) Monitor Interventions for FHR: Ultrasound Adjusted (Martha Schwartz RN) FHR Baseline Rate : 120 (Martha Schwartz RN) FHR Baseline Changes: No Baseline Change (Martha Schwartz RN) Variability: Moderate 6-25 bpm (Martha Schwartz RN) Accelerations: 15X15 (Martha Schwartz RN) Decelerations: None (Martha Schwartz RN) Communication: RN Reviewed Strip (Martha Schwartz RN) Datetime: 09/19/2016 01:06 NBP Sys/Kayleigh/Mean (mmHg): 94 (QS system process) : 52 (QS system process) : 68 (QS system process) Pulse: 93 (QS system process) LaborFlag: Labor (QS system process) Datetime: 09/19/2016 01:00 Stage of : Labor (Martha Schwartz RN) Monitor Mode: External (Martha Schwartz RN) Frequency (min): 2-3 (Martha Schwartz RN) Quality: Mild/Moderate (Martha Schwartz RN) Duration (sec): 70-80 (Martha Schwartz RN) Resting Tone (Palpate): Relaxed (Martha Schwartz RN) Monitor Mode: External US (Martha Schwartz RN) Monitor Interventions for FHR: Ultrasound Adjusted (Martha Schwartz RN) FHR Baseline Rate : 120 (Martha Schwartz RN) FHR Baseline Changes: No Baseline Change (Martha Schwartz RN) Variability: Moderate 6-25 bpm (Martha Schwartz RN) Accelerations: 15X15 (Martha Schwartz RN) Decelerations: None (Martha Schwartz RN) Communication: RN at Bedside; RN Reviewed Strip (Martha Schwartz RN) Datetime: 09/19/2016 00:51 NBP Sys/Kayleigh/Mean (mmHg): 102 (QS system process) : 58 (QS system process) : 73 (QS system process) Pulse: 65 (QS system process) LaborFlag: Labor (QS system process) Datetime: 09/19/2016 00:45 Stage of : Labor (Martha Schwartz RN) Monitor Mode: External (Martha Schwartz RN) Frequency (min): 2-3 (Martha Schwartz RN) Quality: Mild/Moderate (Martha Schwartz RN) Duration (sec): 60-90 (Martha Schwartz RN) Resting Tone (Palpate): Relaxed (Martha Schwartz RN) Monitor Mode: External US (Martha Schwartz RN) Monitor Interventions for FHR: Ultrasound Adjusted (Martha Schwartz RN) FHR Baseline Rate : 120 (Martha Schwartz RN) FHR Baseline Changes: No Baseline Change (Martha Schwartz RN) Variability: Moderate 6-25 bpm (Martha Schwartz RN) Accelerations: 15X15 (Martha Schwartz RN) Decelerations: None (Martha Schwartz RN) Patient Position/Activity: Right Tilt; Semi-Fowlers (Martha Schwartz RN) Communication: RN at Bedside; RN Reviewed Strip (Martha Schwartz RN) Datetime: 09/19/2016 00:37 NBP Sys/Kayleigh/Mean (mmHg): 96 (QS system process) : 58 (QS system process) : 71 (QS system process) Pulse: 70 (QS system process) LaborFlag: Labor (QS system process) Datetime: 09/19/2016 00:30 Stage of : Labor (Martha Schwartz RN) Monitor Mode: External (Martha Schwartz RN) Frequency (min): 1.5-5 (Martha Schwartz RN) Quality: Mild/Moderate (Martha Schwartz RN) Duration (sec): 50-90 (Martha Schwartz RN) Resting Tone (Palpate): Relaxed (Martha Schwartz RN) Monitor Mode: External US (Martha Schwartz RN) FHR Baseline Rate : 115 (Martha Schwartz RN) FHR Baseline Changes: No Baseline Change (Martha Schwartz RN) Variability: Moderate 6-25 bpm (Martha Schwartz RN) Accelerations: 15X15 (Martha Schwartz RN) Decelerations: None (Martha Schwartz RN) Pain Presence: None/Denies (Martha Schwartz RN) Patient Position/Activity: Right Tilt; Semi-Fowlers (Martha Schwartz RN) Communication: RN at Bedside; RN Reviewed Strip (Martha Schwartz RN) LaborFlag: Labor (QS system process) Datetime: 09/19/2016 00:21 NBP Sys/Kayleigh/Mean (mmHg): 95 (QS system process) : 54 (QS system process) : 68 (QS system process) Pulse: 71 (QS system process) LaborFlag: Labor (QS system process) Datetime: 09/19/2016 00:15 Stage of : Labor (Martha Schwartz RN) Monitor Mode: External (Martha Shcwartz RN) Frequency (min): 2-3 (Martha Schwartz RN) Quality: Mild/Moderate (Martha Schwartz RN) Duration (sec): 50-70 (Martha Schwartz RN) Resting Tone (Palpate): Relaxed (Martha Schwartz RN) Monitor Mode: External US (Martha Schwartz RN) Monitor Interventions for FHR: Ultrasound Adjusted (Martha Schwartz RN) FHR Baseline Rate : 120 (Martha Schwartz RN) FHR Baseline Changes: No Baseline Change (Martha Schwartz RN) Variability: Moderate 6-25 bpm (Martha Schwartz RN) Accelerations: None (Martha Schwartz RN) Decelerations: None (Martha Schwartz RN) Pain Scale: 2 (Martha Schwartz RN) Pain Presence: Intermittent (Martha Schwartz RN) Pain Type: Contraction (Martha Schwartz RN) Pain Goal: 1 (Martha Schwartz RN) Pain Relief Measures: Pain Medication Given; Comfort Measures (Martha Schwartz RN) Pain Coping: Breathing Through Contractions (Martha Schwartz RN) Pain Assessment Comments: pt states relief with pain medication given (Martha Schwartz RN) Patient Position/Activity: Left Tilt; Semi-Fowlers (Martha Schwartz RN) Comfort Measures: Breathing/Relaxation; Coaching; Family Support (Martha Schwartz RN) Communication: RN at Bedside; RN Reviewed Strip (Martha Schwartz RN) LaborFlag: Labor (QS system process) Datetime: 09/19/2016 00:06 NBP Sys/Kayleigh/Mean (mmHg): 101 (QS system process) : 63 (QS system process) : 76 (QS system process) Pulse: 78 (QS system process) LaborFlag: Labor (QS system process) Datetime: 09/19/2016 00:05 Analgesics/Sedatives: Nubain (mg) @ 10; Phenergan (mg) @ 12.5 (Martha Schwartz RN) IV/Blood Work: New IV Bag Hung (Martha Schwartz RN) Datetime: 09/19/2016 00:00 Stage of : Labor (Martha Schwartz RN) Monitor Mode: External (Martha Schwartz RN) Frequency (min): 1.5-2 (Martha Schwartz RN) Quality: Mild/Moderate (Martha Schwartz RN) Duration (sec): 40-90 (Martha Schwartz RN) Resting Tone (Palpate): Relaxed (Martha Schwartz RN) Monitor Mode: External US (Martha Schwartz RN) FHR Baseline Rate : 125 (Martha Schwartz RN) FHR Baseline Changes: No Baseline Change (Martha Schwartz RN) Variability: Moderate 6-25 bpm (Martha Schwartz RN) Accelerations: 15X15 (Martha Schwartz RN) Decelerations: None (Martha Schwartz RN) Pitocin (milliunit): Pitocin Remains (milliunits) @ 20 (Martha Schwartz RN) Communication: RN at Bedside; RN Reviewed Strip (Martha Schwartz RN) Datetime: 09/18/2016 23:54 I/O Interventions: Up to BR (Martha Schwartz RN) Datetime: 09/18/2016 23:51 NBP Sys/Kayleigh/Mean (mmHg): 93 (QS system process) : 62 (QS system process) : 73 (QS system process) Pulse: 73 (QS system process) LaborFlag: Labor (QS system process) Datetime: 09/18/2016 23:50 Dilatation (cm): 2.5 (Martha Schwartz RN) Effacement (%): 75 (Martha Schwartz RN) Station: -1 (Martha Schwartz RN) Exam by: Maciej Rios RN (Martha Schwartz RN) Datetime: 09/18/2016 23:45 Stage of : Labor (Martha Schwartz RN) Monitor Mode: External (Martha Schwartz RN) Frequency (min): 2-4 (Martha Schwartz RN) Quality: Mild/Moderate (Martha Schwartz RN) Duration (sec): 40-60 (Martha Schwartz RN) Resting Tone (Palpate): Relaxed (Martha Schwartz RN) Monitor Mode: External US (Martha Schwartz RN) FHR Baseline Rate : 135 (Martha Schwartz RN) FHR Baseline Changes: No Baseline Change (Martha Schwartz RN) Variability: Moderate 6-25 bpm (Martha Schwartz RN) Accelerations: 15X15 (Martha Schwartz RN) Decelerations: None (Martha Schwartz RN) Pain Scale: 3 (Martha Schwartz RN) Pain Presence: Intermittent (Martha Schwartz RN) Pain Type: Contraction (Martha Schwartz RN) Pain Location: Abdomen (Martha Schwartz RN) Pain Goal: 1 (Martha Schwartz RN) Pain Relief Measures: Comfort Measures (Martha Schwartz RN) Pain Coping: Breathing Through Contractions (Martha Schwartz RN) Pain Assessment Comments: hot pack given (Martha Schwartz RN) Pain Assessment Comments: pt requesting pain medication (Martha Schwartz RN) Pitocin (milliunit): Pitocin Remains (milliunits) @ 20 (Martha Schwartz RN) Patient Position/Activity: Right Tilt; Semi-Fowlers (Martha Schwartz RN) Comfort Measures: Hot/Cold Pack (Martha Schwartz RN) Comfort Measures: Breathing/Relaxation; Coaching; Family Support (Martha Schwartz RN) Communication: RN at Bedside; RN Reviewed Strip (Martha Schwartz RN) LaborFlag: Labor (QS system process) Datetime: 09/18/2016 23:36 NBP Sys/Kayleigh/Mean (mmHg): 99 (QS system process) : 60 (QS system process) : 74 (QS system process) Pulse: 116 (QS system process) LaborFlag: Labor (QS system process) Datetime: 09/18/2016 23:30 Stage of : Labor (Martha Schwartz RN) Monitor Mode: External (Martha Schwartz RN) Frequency (min): 2-2.5 (Martha Schwartz RN) Quality: Mild/Moderate (Martha Schwartz RN) Duration (sec): 40-80 (Martha Schwartz RN) Resting Tone (Palpate): Relaxed (Martha Schwartz RN) Monitor Mode: External US (Martha Schwartz RN) FHR Baseline Rate : 135 (Martha Schwartz RN) FHR Baseline Changes: No Baseline Change (Martha Schwartz RN) Variability: Moderate 6-25 bpm (Martha Schwartz RN) Accelerations: 15X15 (Martha Schwartz RN) Decelerations: None (Martha Schwartz RN) Pain Scale: 2 (Martha Schwartz RN) Pain Presence: Intermittent (Martha Schwartz RN) Pain Type: Contraction (Martha Schwartz RN) Pain Location: Abdomen (Martha Schwartz RN) Pain Goal: 1 (Martha Schwartz RN) Pain Relief Measures: Comfort Measures (Martha Schwartz RN) Pain Coping: Talking Through Contractions (Martha Schwartz RN) Pain Assessment Comments: with UCs, denies pain medication at this time (Martha Schwartz RN) Patient Position/Activity: Left Tilt; Semi-Fowlers (Martha Schwartz RN) Comfort Measures: Breathing/Relaxation; Coaching; Family Support (Martha Schwartz RN) Communication: RN at Bedside; RN Reviewed Strip (Martha Schwartz RN) LaborFlag: Labor (QS system process) Datetime: 09/18/2016 23:21 NBP Sys/Kayleigh/Mean (mmHg): 102 (QS system process) : 59 (QS system process) : 75 (QS system process) Pulse: 90 (QS system process) LaborFlag: Labor (QS system process) Datetime: 09/18/2016 23:15 Stage of : Labor (Martha Schwartz RN) Monitor Mode: External (Martha Schwartz RN) Frequency (min): 2-3 (Martha Schwartz RN) Quality: Mild/Moderate (Martha Schwartz RN) Duration (sec): 60-80 (Martha Schwartz RN) Resting Tone (Palpate): Relaxed (Martha Schwartz RN) Monitor Mode: External US (Martha Schwartz RN) Monitor Interventions for FHR: Ultrasound Adjusted (Martha Schwartz RN) FHR Baseline Rate : 130 (Martha Schwartz RN) FHR Baseline Changes: No Baseline Change (Martha Schwartz RN) Variability: Moderate 6-25 bpm (Martha Schwartz RN) Accelerations: 15X15 (Martha Schwartz RN) Decelerations: None (Martha Schwartz RN) Pain Scale: 2 (Martha Schwartz RN) Pain Goal: 1 (Martha Schwartz RN) Pain Assessment Comments: with UCs (Martha Schwartz RN) Pitocin (milliunit): Pitocin Remains (milliunits) @ 20 (Martha Schwartz RN) Communication: RN Reviewed Strip (Martha Schwartz RN) LaborFlag: Labor (QS system process) Datetime: 09/18/2016 23:07 NBP Sys/Kayleigh/Mean (mmHg): 107 (QS system process) : 55 (QS system process) : 78 (QS system process) Pulse: 82 (QS system process) LaborFlag: Antepartum (QS system process) Datetime: 09/18/2016 23:06 Temperature (F): 97.8 (Martha Schwartz RN) Temperature (C): 36.6 (QS system process) Dilatation (cm): 2.0 (Martha Schwartz RN) Effacement (%): 75 (Martha Schwartz RN) Station: -1 (Martha Schwartz RN) Exam by: Maciej Rios RN (Martha Schwartz RN) LaborFlag: Antepartum (QS system process) Datetime: 09/18/2016 23:00 Stage of : Antepartum (Martha Schwartz RN) Monitor Mode: External (Martha Schwartz RN) Frequency (min): 2 (Martha Schwartz RN) Quality: Mild/Moderate (Martha Schwartz RN) Duration (sec): 50-80 (Martha Schwartz RN) Resting Tone (Palpate): Relaxed (Martha Schwartz RN) Monitor Mode: External US (Martha Schwartz RN) Monitor Interventions for FHR: Ultrasound Adjusted (Martha Schwartz RN) FHR Baseline Rate : 125 (Martha Schwartz RN) FHR Baseline Changes: No Baseline Change (Martha Schwartz RN) Variability: Moderate 6-25 bpm (Martha Schwartz RN) Accelerations: 15X15 (Martha Schwartz RN) Decelerations: None (Martha Schwartz RN) Pain Scale: 2 (Martha Schwartz RN) Pain Presence: Intermittent (Martha Schwartz RN) Pain Goal: 1 (Martha Schwartz RN) Pain Relief Measures: Comfort Measures (Martha Schwartz RN) Pain Assessment Comments: pt declines pain medication (Martha Schwartz RN) Pitocin (milliunit): Pitocin Remains (milliunits) @ 20 (Martha Schwartz RN) Patient Position/Activity: High Fowlers (Martha Schwartz RN) Comfort Measures: Breathing/Relaxation; Coaching; Family Support (Martha Schwartz RN) Communication: RN at Bedside; RN Reviewed Strip (Martha Schwartz RN) LaborFlag: Antepartum (QS system process) Datetime: 09/18/2016 22:51 NBP Sys/Kayleigh/Mean (mmHg): 97 (QS system process) : 61 (QS system process) : 74 (QS system process) Pulse: 78 (QS system process) LaborFlag: Antepartum (QS system process) Datetime: 09/18/2016 22:45 Stage of : Antepartum (Martha Schwartz RN) Monitor Mode: External (Martha Schwartz RN) Frequency (min): 2-3 (Martha Schwartz RN) Quality: Mild/Moderate (Martha Schwartz RN) Duration (sec): 50-70 (Martha Schwartz RN) Resting Tone (Palpate): Relaxed (Martha Schwartz RN) Monitor Mode: External US (Martha Schwartz RN) Monitor Interventions for FHR: Ultrasound Adjusted (Martha Schwartz RN) FHR Baseline Changes: No Baseline Change (Martha Schwartz RN) Comments: UTD accurate FHR as RN at b/s adjusting US (Martha Schwartz RN) Pitocin (milliunit): Pitocin Remains (milliunits) @ 20 (Martha Schwartz RN) Communication: RN at Bedside; RN Reviewed Strip (Martha Schwartz RN) Datetime: 09/18/2016 22:36 NBP Sys/Kayleigh/Mean (mmHg): 101 (QS system process) : 67 (QS system process) : 79 (QS system process) Pulse: 77 (QS system process) LaborFlag: Antepartum (QS system process) Datetime: 09/18/2016 22:30 Stage of : Antepartum (Martha Schwartz RN) Monitor Mode: External (Martha Schwartz RN) Frequency (min): 2-3 (Martha Schwartz RN) Quality: Mild/Moderate (Martha Schwartz RN) Duration (sec): 50-70 (Martha Schwartz RN) Monitor Mode: External US (Martha Schwartz RN) FHR Baseline Rate : 145 (Martha Schwartz RN) FHR Baseline Changes: No Baseline Change (Martha Schwartz RN) Variability: Moderate 6-25 bpm (Martha Schwartz RN) Accelerations: 15X15 (Martha Schwartz RN) Decelerations: None (Martha Schwartz RN) Comments: RN at b/s adjusting US (Martha Schwartz RN) Pain Presence: Intermittent (Martha Schwartz RN) Pain Type: Contraction (Martha Schwartz RN) Pain Relief Measures: Comfort Measures (Matrha Schwartz RN) Pain Coping: Breathing Through Contractions (Martha Schwartz RN) Pitocin (milliunit): Pitocin Remains (milliunits) @ 20 (Martha Schwartz RN) Patient Position/Activity: Left Lateral; Peanut Ball (Martha Schwartz RN) Comfort Measures: Breathing/Relaxation; Coaching; Family Support (Martha Schwartz RN) Communication: RN at Bedside; RN Reviewed Strip (Martha Schwartz RN) LaborFlag: Antepartum (QS system process) Datetime: 09/18/2016 22:21 NBP Sys/Kayleigh/Mean (mmHg): 98 (QS system process) : 56 (QS system process) : 71 (QS system process) Pulse: 68 (QS system process) LaborFlag: Antepartum (QS system process) Datetime: 09/18/2016 22:15 Stage of : Antepartum (Martha Schwartz RN) Monitor Mode: External (Martha Schwartz RN) Monitor Interventions for UA: [place] Adjusted (Martha Schwartz RN) Frequency (min): 2-3 (Martha Schwartz RN) Quality: Mild/Moderate (Martha Schwartz RN) Duration (sec): 50-60 (Martha Schwartz RN) Resting Tone (Palpate): Relaxed (Martha Schwartz RN) Monitor Mode: External US (Martha Schwartz RN) FHR Baseline Rate : 155 (Martha Schwartz RN) FHR Baseline Changes: No Baseline Change (Martha Schwartz RN) Variability: Moderate 6-25 bpm (Martha Schwartz RN) Decelerations: None (Martha Schwartz RN) Comments: RN at b/s adjusting US (Martha Schwartz RN) Pitocin (milliunit): Pitocin Remains (milliunits) @ 20 (Martha Schwartz RN) Antibiotics: Ampicillin IV 1 Gm (Martha Schwartz RN) Communication: RN at Bedside; RN Reviewed Strip (Martha Schwartz RN) Datetime: 09/18/2016 22:07 NBP Sys/Kayleigh/Mean (mmHg): 101 (QS system process) : 57 (QS system process) : 77 (QS system process) Pulse: 63 (QS system process) LaborFlag: Antepartum (QS system process) Datetime: 09/18/2016 22:02 I/O Interventions: Up to BR (Martha Schwartz RN) Datetime: 09/18/2016 22:00 Stage of : Antepartum (Martha Schwartz RN) Monitor Mode: External (Martha Schwartz RN) Frequency (min): 2-3 (Martha Schwartz RN) Quality: Mild (Martha Schwartz RN) Duration (sec): 50-100 (Martha Schwartz RN) Resting Tone (Palpate): Relaxed (Martha Schwartz RN) Monitor Mode: External US (Martha Schwartz RN) FHR Baseline Rate : 155 (Martha Schwartz RN) FHR Baseline Changes: No Baseline Change (Martha Schwartz RN) Variability: Moderate 6-25 bpm (Martha Schwartz RN) Accelerations: 15X15 (Martha Schwartz RN) Decelerations: None (Martha Schwartz RN) Pitocin (milliunit): Pitocin Increased to (milliunits) @ 20 (Martha Schwartz RN) Patient Position/Activity: Right Lateral; Peanut Ball (Martha Schwartz RN) Communication: RN at Bedside; RN Reviewed Strip (Martha Schwartz RN) Datetime: 09/18/2016 21:51 NBP Sys/Kayleigh/Mean (mmHg): 84 (QS system process) : 48 (QS system process) : 61 (QS system process) Pulse: 65 (QS system process) LaborFlag: Antepartum (QS system process) Datetime: 09/18/2016 21:45 Stage of : Antepartum (Martha Schwartz RN) Monitor Mode: External (Martha Schwartz RN) Frequency (min): 3 (Martha Schwartz RN) Quality: Mild/Moderate (Martha Schwartz RN) Duration (sec): 40-70 (Martha Schwartz RN) Resting Tone (Palpate): Relaxed (Martha Schwartz RN) Monitor Mode: External US (Martha Schwartz RN) Monitor Interventions for FHR: Ultrasound Adjusted (Martha Schwartz RN) FHR Baseline Rate : 135 (Martha Schwartz RN) FHR Baseline Changes: No Baseline Change (Martha Schwartz RN) Variability: Moderate 6-25 bpm (Martha Schwartz RN) Accelerations: 15X15 (Martha Schwartz RN) Decelerations: None (Martha Schwartz RN) Comments: RN at b/s adjusting US (Martha Schwartz RN) Pitocin (milliunit): Pitocin Remains (milliunits) @ 18 (Martha Schwartz RN) Patient Position/Activity: Left Lateral; Peanut Ball (Martha Schwartz, SILVANO) Communication: RN at Bedside; RN Reviewed Strip (Martha Schwartz RN) Datetime: 09/18/2016 21:36 NBP Sys/Kayleigh/Mean (mmHg): 84 (QS system process) : 53 (QS system process) : 64 (QS system process) Pulse: 65 (QS system process) LaborFlag: Antepartum (QS system process) Datetime: 09/18/2016 21:30 Stage of : Antepartum (Martha Schwartz RN) Temperature (F): 97.4 (Martha Schwartz RN) Temperature (C): 36.3 (QS system process) Monitor Mode: External (Martha Schwartz RN) Frequency (min): 3-4 (Martha Schwartz RN) Quality: Mild/Moderate (Martha Schwartz RN) Duration (sec): 50-70 (Martha Schwartz RN) Resting Tone (Palpate): Relaxed (Martha Schwartz RN) Monitor Mode: External US (Martha Schwartz RN) Monitor Interventions for FHR: Ultrasound Adjusted (Martha Schwartz RN) FHR Baseline Rate : 150 (Martha Schwartz RN) FHR Baseline Changes: No Baseline Change (Martha Schwartz RN) Variability: Moderate 6-25 bpm (Martha Schwartz RN) Accelerations: None (Martha Schwartz RN) Decelerations: None (Martha Schwartz RN) Comments: RN at b/s adjusting US (Martha Schwartz RN) Pain Presence: Intermittent (Martha Schwartz RN) Pain Type: Contraction (Martha Schwartz RN) Pain Location: Abdomen (Martha Schwartz RN) Pain Relief Measures: Comfort Measures (Martha Schwartz RN) Pain Coping: Talking Through Contractions (Martha Schwartz RN) Pitocin (milliunit): Pitocin Increased to (milliunits) @ 18 (Martha Schwartz RN) Patient Position/Activity: Left Lateral; Peanut Ball (Martha Schwartz RN) Comfort Measures: Breathing/Relaxation; Coaching; Family Support (Martha Schwartz RN) Communication: RN at Bedside; RN Reviewed Strip (Martha Schwartz RN) LaborFlag: Antepartum (QS system process) Datetime: 09/18/2016 21:21 NBP Sys/Kayleigh/Mean (mmHg): 92 (QS system process) : 61 (QS system process) : 72 (QS system process) Pulse: 72 (QS system process) LaborFlag: Antepartum (QS system process) Datetime: 09/18/2016 21:15 Stage of : Antepartum (Martha Schwartz RN) Monitor Mode: External (Martha Schwartz RN) Monitor Interventions for UA: [place] Adjusted (Martha Schwartz RN) Quality: Mild/Moderate (Martha Schwartz RN) Resting Tone (Palpate): Relaxed (Martha Schwartz RN) Contraction Comments: UTD accurate UC's as RN at b/s adjusting TOCO (Martha Schwartz RN) Monitor Mode: External US (Martha Schwartz RN) Monitor Interventions for FHR: Ultrasound Adjusted (Martha Schwartz RN) FHR Baseline Rate : 145 (Martha Schwartz RN) FHR Baseline Changes: No Baseline Change (Martha Schwartz RN) Variability: Moderate 6-25 bpm (Martha Schwartz RN) Accelerations: 15X15 (Martha Schwartz RN) Decelerations: None (Martha Schwartz RN) Pitocin (milliunit): Pitocin Remains (milliunits) @ 16 (Martha Schwartz RN) Communication: RN at Bedside; RN Reviewed Strip (Martha Schwartz RN) Datetime: 09/18/2016 21:06 NBP Sys/Kayleigh/Mean (mmHg): 100 (QS system process) : 67 (QS system process) : 79 (QS system process) Pulse: 66 (QS system process) LaborFlag: Antepartum (QS system process) Datetime: 09/18/2016 21:03 Patient Position/Activity: Left Lateral; Peanut Ball (Martha Schwartz RN) Datetime: 09/18/2016 21:00 Stage of : Antepartum (Martha Schwartz RN) Monitor Mode: External (Martha Schwartz RN) Frequency (min): 3-4 (Martha Schwartz RN) Quality: Mild/Moderate (Martha Schwartz RN) Duration (sec): 60-80 (Martha Schwartz RN) Resting Tone (Palpate): Relaxed (Martha Schwartz RN) Monitor Mode: External US (Martha Schwartz RN) Monitor Interventions for FHR: Ultrasound Adjusted (Martha Schwartz RN) FHR Baseline Rate : 125 (Martha Schwartz RN) FHR Baseline Changes: No Baseline Change (Martha Schwartz RN) Variability: Moderate 6-25 bpm (Martha Schwartz RN) Accelerations: 15X15 (Martha Schwartz RN) Decelerations: None (Martha Schwartz RN) Pain Presence: Intermittent (Martha Schwartz RN) Pain Type: Contraction (Martha Schwartz RN) Pain Relief Measures: Comfort Measures (Martha Schwartz RN) Pain Coping: Talking Through Contractions (Martha Schwartz RN) Pitocin (milliunit): Pitocin Increased to (milliunits) @ 16 (Martha Schwartz RN) Patient Position/Activity: Left Tilt; Semi-Fowlers (Martha Schwartz RN) Comfort Measures: Breathing/Relaxation; Coaching; Family Support (Martha Schwartz RN) Communication: RN at Bedside; RN Reviewed Strip (Martha Schwartz RN) LaborFlag: Antepartum (QS system process) Datetime: 09/18/2016 20:51 NBP Sys/Kayleigh/Mean (mmHg): 97 (QS system process) : 62 (QS system process) : 76 (QS system process) Pulse: 74 (QS system process) LaborFlag: Antepartum (QS system process) Datetime: 09/18/2016 20:45 Stage of : Antepartum (Martha Schwartz RN) Monitor Mode: External (Martha Schwartz RN) Frequency (min): 2-3 (Martha Schwartz RN) Quality: Mild/Moderate (Marhta Schwartz RN) Duration (sec): 40-70 (Martha Schwratz RN) Resting Tone (Palpate): Relaxed (Martha Schwartz RN) Monitor Mode: External US (Martha Schwartz RN) FHR Baseline Rate : 125 (Martha Schwartz RN) FHR Baseline Changes: No Baseline Change (Martha Schwartz RN) Variability: Moderate 6-25 bpm (Martha Schwartz RN) Accelerations: 15X15 (Martha Schwartz RN) Decelerations: None (Martha Schwartz RN) Pitocin (milliunit): Pitocin Remains (milliunits) @ 14 (Martha Schwartz RN) Communication: RN Reviewed Strip (Martha Schwartz RN) Datetime: 09/18/2016 20:37 NBP Sys/Kayleigh/Mean (mmHg): 93 (QS system process) : 62 (QS system process) : 73 (QS system process) Pulse: 84 (QS system process) LaborFlag: Antepartum (QS system process) Datetime: 09/18/2016 20:30 Stage of : Antepartum (Martha Schwartz RN) FHR Baseline Rate : 140 (Martha Schwartz RN) Pitocin (milliunit): Pitocin Increased to (milliunits) @ 14 (Martha Schwartz RN) Communication: RN at Bedside; RN Reviewed Strip (Martha Schwartz RN) Datetime: 09/18/2016 20:22 NBP Sys/Kayleigh/Mean (mmHg): 98 (QS system process) : 57 (QS system process) : 72 (QS system process) Pulse: 75 (QS system process) LaborFlag: Antepartum (QS system process) Datetime: 09/18/2016 20:15 Stage of : Antepartum (Martha Schwartz RN) Monitor Mode: External (Martha Schwartz RN) Monitor Interventions for UA: [place] Adjusted (Martha Schwartz RN) Frequency (min): 1.5-3 (Martha Schwartz RN) Quality: Mild/Moderate (Martha Schwartz RN) Resting Tone (Palpate): Relaxed (Martha Schwartz RN) Monitor Mode: External US (Martha Schwartz RN) FHR Baseline Rate : 135 (Martha Schwartz RN) FHR Baseline Changes: No Baseline Change (Martha Schwartz RN) Variability: Moderate 6-25 bpm (Martha Schwartz RN) Accelerations: 15X15 (Martha Schwartz RN) Decelerations: None (Martha Schwartz RN) Pitocin (milliunit): Pitocin Remains (milliunits) @ 12 (Martha Schwartz RN) Patient Position/Activity: Left Tilt; Semi-Fowlers (Martha Schwartz RN) Communication: RN at Bedside; RN Reviewed Strip (Martha Schwartz RN) Datetime: 09/18/2016 20:06 NBP Sys/Kayleigh/Mean (mmHg): 109 (QS system process) : 59 (QS system process) : 80 (QS system process) Pulse: 71 (QS system process) LaborFlag: Antepartum (QS system process) Datetime: 09/18/2016 20:00 Stage of : Antepartum (Martha Schwartz RN) Monitor Mode: External (Martha Schwartz RN) Frequency (min): 2-4 (Martha Schwarzt RN) Quality: Mild/Moderate (Martha Schwartz RN) Duration (sec): 70-100 (Martha Schwartz RN) Resting Tone (Palpate): Relaxed (Martha Schwartz RN) Monitor Mode: External US (Martha Schwartz RN) Monitor Interventions for FHR: Ultrasound Adjusted (Martha Schwartz RN) FHR Baseline Rate : 135 (Martha Schwartz RN) FHR Baseline Changes: No Baseline Change (Martha Schwartz RN) Variability: Moderate 6-25 bpm (Martha Schwartz RN) Accelerations: 15X15 (Martha Schwartz RN) Decelerations: None (Martha Schwartz RN) Pain Scale: 2 (Martha Schwartz RN) Pain Presence: Intermittent (Martha Schwartz RN) Pain Type: Contraction (Martha Schwartz RN) Pain Location: Abdomen (Martha Schwartz RN) Pain Goal: 1 (Martha Schwartz RN) Pain Relief Measures: Comfort Measures (Martha Schwartz RN) Pain Coping: Talking Through Contractions (Martha Schwartz RN) Pain Assessment Comments: with UC's (Martha Schwartz RN) Pitocin (milliunit): Pitocin Increased to (milliunits) @ 12 (Martha Schwartz RN) Patient Position/Activity: Left Tilt; Semi-Fowlers (Martha Schwartz RN) Comfort Measures: Breathing/Relaxation; Coaching; Aromatherapy (Martha Schwartz RN) Communication: RN at Bedside; RN Reviewed Strip (Martha Schwartz RN) LaborFlag: Antepartum (QS system process) Datetime: 09/18/2016 19:52 NBP Sys/Kayleigh/Mean (mmHg): 94 (QS system process) : 58 (QS system process) : 72 (QS system process) Pulse: 75 (QS system process) LaborFlag: Antepartum (QS system process) Datetime: 09/18/2016 19:45 Stage of : Antepartum (Martha Schwartz RN) Monitor Mode: External (Martha Schwartz RN) Frequency (min): 2-4 (Martha Schwartz RN) Quality: Mild/Moderate (Martha Schwartz RN) Duration (sec): 50-70 (Martha Schwartz RN) Resting Tone (Palpate): Relaxed (Martha Schwartz RN) Monitor Mode: External US (Martha Schwartz RN) FHR Baseline Rate : 130 (Martha Schwartz RN) FHR Baseline Changes: No Baseline Change (Martha Schwartz RN) Variability: Moderate 6-25 bpm (Martha Schwartz RN) Accelerations: 15X15 (Martha Schwartz RN) Decelerations: None (Martha Schwartz RN) Pitocin (milliunit): Pitocin Remains (milliunits) @ 10 (Martha Schwartz RN) Communication: RN at Bedside; RN Reviewed Strip (Martha Schwartz RN) Datetime: 09/18/2016 19:37 NBP Sys/Kayleigh/Mean (mmHg): 100 (QS system process) : 62 (QS system process) : 74 (QS system process) Pulse: 71 (QS system process) LaborFlag: Antepartum (QS system process) Datetime: 09/18/2016 19:30 Stage of : Antepartum (Martha Schwartz RN) Temperature (F): 98.0 (Martha Schwartz RN) Temperature (C): 36.7 (QS system process) Frequency (min): 2-3 (Martha Schwartz RN) Duration (sec): 60-70 (Martha Schwartz RN) Monitor Mode: External US (Martha Schwartz RN) FHR Baseline Rate : 135 (Martha Schwartz RN) FHR Baseline Changes: No Baseline Change (Martha Schwartz RN) Variability: Moderate 6-25 bpm (Martha Schwartz RN) Accelerations: 15X15 (Martha Schwartz RN) Decelerations: None (Martha Schwartz RN) Level of Consciousness: Fully Conscious (Martha Schwartz RN) DTR's/Clonus: DTRs 2+; No Clonus (Martha Schwartz RN) Headache: Denies (Martha Schwartz RN) Breath Sounds, Left: Clear and Equal (Martha Schwartz RN) Breath Sounds, Right: Clear and Equal (Martha Schwartz RN) Nausea/Vomiting: Denies (Martha Schwartz RN) RUQ Epigastric Pain: Denies (Martha Schwartz RN) Pitocin (milliunit): Pitocin Increased to (milliunits) @ 10 (Martha Schwartz RN) Pitocin (milliunit): Pitocin Increased to (milliunits) @ (Annotations: 10) (Martha Schwartz RN) I/O Interventions: Up to BR (Martha Schwartz RN) Communication: RN at Bedside; RN Reviewed Strip (Martha Schwartz RN) LaborFlag: Antepartum (QS system process) Datetime: 09/18/2016 19:21 NBP Sys/Kayleigh/Mean (mmHg): 100 (QS system process) : 55 (QS system process) : 70 (QS system process) Pulse: 69 (QS system process) LaborFlag: Antepartum (QS system process) Datetime: 09/18/2016 19:15 Stage of : Antepartum (Martha Schwartz RN) Monitor Mode: External (Martha Schwartz RN) Frequency (min): x1 (Martha Schwartz RN) Quality: Mild (Martha Schwartz RN) Duration (sec): 90 (Martha Schwartz RN) Resting Tone (Palpate): Relaxed (Martha Schwartz RN) Monitor Mode: External US (Martha Schwartz RN) FHR Baseline Rate : 135 (Martha Schwartz RN) FHR Baseline Changes: No Baseline Change (Martha Schwartz RN) Variability: Moderate 6-25 bpm (Martha Schwartz RN) Accelerations: 15X15 (Martha Schwartz RN) Decelerations: None (Martha Schwartz RN) Pain Presence: Intermittent (Martha Schwartz RN) Pain Type: Contraction (Martha Schwartz RN) Pain Location: Abdomen (Martha Schwartz RN) Pain Relief Measures: Comfort Measures (Martha Schwartz RN) Pain Coping: Talking Through Contractions (Martha Schwartz RN) Pitocin (milliunit): Pitocin Remains (milliunits) @ 8 (Martha Schwartz RN) Patient Position/Activity: Left Tilt; Semi-Fowlers (Martha Schwartz RN) Comfort Measures: Breathing/Relaxation; Family Support (Martha Schwartz RN) Communication: RN Reviewed Strip (Martha Schwartz RN) LaborFlag: Antepartum (QS system process) Datetime: 09/18/2016 19:07 NBP Sys/Kayleigh/Mean (mmHg): 90 (QS system process) : 55 (QS system process) : 67 (QS system process) Pulse: 73 (QS system process) Datetime: 09/18/2016 19:01 Monitor Interventions for UA: [place] Adjusted (Beth Salinas RN) Datetime: 09/18/2016 19:00 Monitor Mode: External; Palpation (Beth Salinas RN) Quality: Mild (Beth Salinas RN) Duration Criteria: Less than Two 120 Second Contractions (Beth Salinas RN) Pattern: Normal: <= 5 Contractions in 10 Minutes (Beth Salinas RN) Resting Tone (Palpate): Relaxed (Beth Salinas RN) Contraction Comments: difficult to trace contractions, RN at bedside palpating abdomen and adjusting monitor (Beth Salinas RN) Monitor Mode: External US (Beth Salinas RN) FHR Baseline Rate : 130 (Beth Salinas RN) FHR Baseline Changes: No Baseline Change (Beth Salinas RN) Variability: Moderate 6-25 bpm (Beth Salinas RN) Accelerations: 15X15 (Beth Salinas RN) Decelerations: None (Beth Salinas RN) Pitocin (milliunit): Pitocin Increased to (milliunits) @ 8 (Beth Salinas RN)
[2016-09-19] MEDS: DOCUSATE SODIUM 100 MG CAPSULE PO SCH ×2 (09:34→17:21)
[2016-09-19] MEDS: PRENATAL VITAMIN W-O CA NO5/FE FUMARATE/FA CAPSULE PO SCH (09:35)
[2016-09-19] MEDS: SENNOSIDES/DOCUSATE 8.6-50 MG 1 EACH TABLET PO SCH (09:35)
[2016-09-19] MEDS: FERROUS SULFATE 325 MG TABLET PO SCH ×2 (09:35→17:21)
--- NOTE | 2016-09-19 09:45 | PDOC PROGRESS REPORT ---
Subjective-OB Subjective: Post Delivery Day: 31 year old. Denies any needs at this time Physical Exam (OB) Vital Signs: Temp Pulse Resp BP Pulse Ox 97.7 F 74 18 90/56 L 96 09/19/16 08:12 09/19/16 08:12 09/19/16 08:12 09/19/16 08:12 09/19/16 08:12 Intake & Output 09/18/16 09/19/16 09/20/16 06:59 06:59 06:59 Weight 87.8 kg - Lochia Lochia Amount: Small 10-25 ml Lochia Color: Rubra/Red - Abdomen Description: Soft, Round Hernia Present: No Bowel Sounds: Normoactive Flatus Presence: Absent Stool: No Fundal Description: Firm, Midline Fundal Height: u/u - u/2 Objective-Diagnostic Laboratory: 09/18/16 16:20 09/18/16 09/18/16 09/18/16 15:45 16:20 16:20 WBC 10.2 RBC 3.62 L Hgb 10.9 L Hct 31.9 L MCV 88 MCH 30.2 MCHC 34.4 RDW 13.3 Plt Count 279 Seg Neutrophils % 77.3 Lymphocytes % 16.9 Monocytes % 4.7 Eosinophils % 0.7 Basophils % 0.4 Absolute Neutrophils 7.9 Absolute Lymphocytes 1.7 Absolute Monocytes 0.5 Absolute Eosinophils 0.1 Absolute Basophils 0.0 Urine Color YELLOW Urine Appearance SLIGHTLY-CLOUDY Urine pH 5.0 Ur Specific [place] 1.023 Urine Protein 30 H Urine Glucose (UA) NEGATIVE Urine Ketones NEGATIVE Urine Blood NEGATIVE Urine Nitrite NEGATIVE Ur Leukocyte Esterase NEGATIVE Blood Type O POSITIVE Antibody Screen NEGATIVE
--- NOTE | 2016-09-19 18:01 | L&D Current Admission ---
Current Admit Datetime Report Generated by CPN: 09/19/2016 18:00 ADMISSION INFORMATION Current Admit Date/Time: 09/18/2016 15:58 (09/18/2016 15:56:Beth Salinas RN) Reason for Admission: Rupture of Membranes (09/18/2016 15:56:Beth Salinas RN) Chief Complaint: Suspected Rupture of Membranes (Annotations: fern and nitrazine test in office today, both positive. Pooling noted upon exam. Patient states she first noticed the leaking at midnight 09/18/16) (09/18/2016 16:28:Beth Salinas RN) EGA per Dates: 38.1 (09/18/2016 15:56:QS system process) Method of Arrival: Ambulatory (09/18/2016 15:56:Beth Salinas RN) Reason for Induction: Not Applicable (09/18/2016 15:56:Beth Salinas RN) Records Available: Yes (09/18/2016 15:56:Beth Salinas RN) General Admission Information: Reviewed (09/18/2016 15:56:Beth Salinas RN) BELONGINGS/ADVANCED DIRECTIVES Valuables/Personal Effects: Purse/Wallet; Cell Phone; Jewelry (09/18/2016 15:56:Beth Salinas RN) Disposition of Belongings: Kept with Patient (09/18/2016 15:56:Beth Salinas RN) Advance Direct for Healthcare: No, and Wants No Information (09/18/2016 15:56:Beth Salinas RN) Durable Power of Sales Applications Engineer: No (09/18/2016 15:56:Beth Salinas RN) Living Will: No (09/18/2016 15:56:Beth Salinas RN) Organ Donor: Yes (09/18/2016 15:56:Beth Salinas RN) Pt Rights Information Given: Yes (09/18/2016 15:56:Beth Salinas RN) Pt Understands Pt Rights: Yes (09/18/2016 15:56:Beth Salinas RN) LEARNING ASSESSMENT Knowledge Level: Understands L_D Process (09/18/2016 15:56:Beth Salinas RN) Learning Readiness: Motivated (09/18/2016 15:56:Beth Salinas RN) DOMESTIC VIOLANCE SCREENING Dom Viol Threatened/Hurt: No (09/18/2016 15:56:Beth Salinas RN) Hx of Abuse/Neglect past 2yrs: No (09/18/2016 15:56:Beth Salinas RN) Feel Unsafe Going Home: No (09/18/2016 15:56:Beth Salinas RN) Addt'l Observ Indicating Abuse: No (09/18/2016 15:56:Beth Salinas RN) Reason Unable to Complete Screen: N/A, Screen Completed (09/18/2016 15:56:Beth Salinas RN) Considered Personal Harm/Suicide: No (09/18/2016 15:56:Beth Salinas RN) NUTRITIONAL/FUNCTIONAL SCREENING Problem with Appetite >5 Days: No (09/18/2016 15:56:Beth Salinas RN) Chew/Swallow Difficulties: No (09/18/2016 15:56:Beth Salinas RN) Inappropriate Wt Gain/Loss: No (09/18/2016 15:56:Beth Salinas RN) Presence Skin Breakdown/Ulcer: No (09/18/2016 15:56:Beth Salinas RN) Special Diet: No (09/18/2016 15:56:Beth Salinas RN) Pt Requests Disc Jockey Visit: No (09/18/2016 15:56:Beth Salinas RN) Hx of Any of the Following?: N/A (09/18/2016 15:56:Beth Salinas RN) New Diagnosis of: N/A (09/18/2016 15:56:Beth Salinas RN) Requires Assist w/Ambulation: No (09/18/2016 15:56:Beth Salinas RN) Uses Assist Device to Ambulate: No (09/18/2016 15:56:Beth Salinas RN) Pt Requires Help w/ADL's: No (09/18/2016 15:56:Beth Salinas RN)
--- NOTE | 2016-09-19 18:01 | L&D General Admission ---
General Admit Datetime Report Generated by CPN: 09/19/2016 18:00 INFORMATION Patient Age: 31 (07/25/2016 09:11:QS system process) EDC: 10/01/2016 00:00 (09/18/2016 14:20:Beth Salinas RN) : 2 (09/18/2016 14:20:Beth Salinas RN) Para: 1 (09/18/2016 14:20:Beth Salinas RN) Baby, Number in Womb: 1 (09/18/2016 14:20:Martha Schwartz RN) CARE [facility] Border Police[facility] (09/18/2016 14:20:Beth Salinas RN) Month of 1st Visit: January (09/18/2016 14:20:Beth Salinas RN) Adequate Care: Yes (09/18/2016 14:20:Beth Salinas RN) Height (in): 64 (09/19/2016 12:15:QS system process) ALLERGIES Medication Allergy: No (09/18/2016 14:20:Beth Salinas RN) Medication Allergies: No Known Allergies (09/18/2016) (09/18/2016 17:58:QS system process) Latex Allergy: No Latex Allergies (09/18/2016 14:20:Beth Salinas RN) Food Allergies: denies (09/18/2016 14:20:Beth Salinas RN) Environmental Allergies: denies (09/18/2016 14:20:Beth Salinas RN) COMMUNICATION Primary Language: Georgian (09/18/2016 14:20:Beth Salinas RN) Medical Tx Preferred Language: Georgian (09/18/2016 14:20:Beth Salinas RN) DEMOGRAPHICS Address: [address] [place] [id number] (07/25/2016 09:11:QS system process) Zipcode: [address] (07/25/2016 09:11:QS system process) Home (07/25/2016 09:11:QS system process) Work (07/25/2016 09:11:QS system process) SSN: [id number] (07/25/2016 09:11:QS system process) Next of Kin Name: YANA DONG (07/25/2016 09:11:QS system process) Next of Kin (07/25/2016 09:11:QS system process) Next of Kin Relationship: MO (07/25/2016 09:11:QS system process) Date of : 1985 (07/25/2016 09:11:QS system process) Marital Status: Single (07/25/2016 09:11:QS system process) Sex: Female (07/25/2016 09:11:QS system process) Race: (07/25/2016 09:11:QS system process) Ethnicity: Non- or (07/25/2016 09:11:QS system process) Uatsdin: No Mandaen Info Avail. (07/25/2016 09:11:QS system process) DRUG AND ALCOHOL USE Alcohol: No (09/18/2016 14:20:Beth Salinas RN) Cigarettes: Never Smoker. [id number] (09/18/2016 14:20:Beht Salinas RN) Marijuana: No (09/18/2016 14:20:Beth Salinas RN) Cocaine: No (09/18/2016 14:20:Beth Salinas RN) Other Illicit Drugs: No (09/18/2016 14:20:Beth Salinas RN) VACCINE HISTORY Influenza Vaccine: Yes (09/18/2016 14:20:Beth Salinas RN) Pneumococcal Vaccine: No (09/18/2016 14:20:Beth Salinas RN) Tdap Vaccine: Yes (09/18/2016 14:20:eBth Salinas RN) Hepatitis B Vaccine: Yes (09/18/2016 14:20:Beth Salinas RN) Operations And Maintenance Supervisor: [facility] (09/18/2016 14:20:Beth Salinas RN) Feeding Preference: Breast (09/18/2016 14:20:Beth Salinas RN) Benefit of Breast Feed Discussed: Yes (09/18/2016 14:20:Beth Salinas RN) Circumcision: N/A (09/18/2016 14:20:Beth Salinas RN) Classes Attended: No (09/18/2016 14:20:Beth Salinas RN) Tubal Ligation: No (09/18/2016 14:20:Beth Salinas RN) Tubal Authorization Signed: N/A (09/18/2016 14:20:Beth Salinas RN) Consent: N/A (09/18/2016 14:20:Beth Salinas RN) Consent Signed: N/A (09/18/2016 14:20:Beth Salinas RN) Pain Management Plans: Medications (09/18/2016 14:20:Beth Salinas RN) Support Person: Ismael Ascencio (09/18/2016 14:20:Beth Salinas RN) Support Person Relationship: Significant Other (09/18/2016 14:20:Beth Salinas RN) Cultural/Spritual Practice: No (09/18/2016 14:20:Beth Salinas RN) Spir/Cult Dietary Needs: No (09/18/2016 14:20:Beth Salinas RN) LIVING SITUATION/DISCHARGE PLAN Living Arrangements: House (09/18/2016 14:20:Beth Salinas RN) Adequate Access to:: Electric; Heat; Refrigeration; Plumbing/Running water; Phone; Transportation (09/18/2016 14:20:Beth Salinas RN) WIC Program: Yes (09/18/2016 14:20:Beth Salinas RN) Currently Using Commun Resources: No (09/18/2016 14:20:Beth Salinas RN) Outside Agency/[employer]: No (09/18/2016 14:20:Beth Salinas RN) Car Seat for Discharge: Yes (09/18/2016 14:20:Beth Salinas RN) Adoption Requested: No (09/18/2016 14:20:Beth Salinas RN) Pt Contact w/infant Post : N/A (09/18/2016 14:20:Beth Salinas RN) LABS Blood Type: O Positive (09/18/2016 14:20:Jing Antony RN) Antibody Screen: neg (09/18/2016 14:20:Jing Antony RN) Rho(G) this : Not Applicable (09/18/2016 14:20:Viktoriya Vanegas RN) Hemoglobin: 10.9 L (09/18/2016 16:20:QS system process) Hematocrit: 31.9 L (09/18/2016 16:20:QS system process) MCV: 88 (09/18/2016 16:20:QS system process) Group Beta Strep: Negative (09/18/2016 14:20:YOLI Escobar) Gonorrhea: Negative (09/18/2016 14:20:YOLI Escobar) Chlamydia: Negative (09/18/2016 14:20:YOLI Escobar) RPR/VDRL: Nonreactive (Annotations: Data stored by N on behalf of user) (09/18/2016 14:20:Jing Antony RN) HIV Exposure Test: Negative (09/18/2016 14:20:YOLI Escobar) Hepatitis B: Negative (09/18/2016 14:20:Jing Anotny RN) Rubella: Immune (09/18/2016 14:20:Jign Antony RN) OB/PREVIOUS HISTORY Previous Procedures: Ultrasound; NST (09/18/2016 14:20:Beth Salinas RN) Current Procedures: Ultrasound; NST (09/18/2016 14:20:Beth Salinas RN) History of Previous : No (09/18/2016 14:20:Beth Salinas RN) History of Gestational Diabetes: No (09/18/2016 14:20:Beth Salinas RN) History of PIH: No (09/18/2016 14:20:Beth Salinas RN) History of Incompetent Cervix: No (09/18/2016 14:20:Beth Salinas RN) History of Placenta Previa/Abrup: No (09/18/2016 14:20:Beth Salinas RN) History of Macrosomia: No (09/18/2016 14:20:Beth Salinas RN) History of IUGR: No (09/18/2016 14:20:Beth Salinas RN) History of Hemorrhage: No (09/18/2016 14:20:Beth Salinas RN) History of Loss/Stillborn: No (09/18/2016 14:20:Beth Salinas RN) History of : No (09/18/2016 14:20:Beth Salinas RN) History of D (Rh) Sensitization: No (09/18/2016 14:20:Beth Salinas RN) History Recurrent Loss/Stillborn: No (09/18/2016 14:20:Beth Salinas RN) History Depression/PP Depression: No (09/18/2016 14:20:Beth Salinas RN) History of Uterine Anomaly/ARUN: No (09/18/2016 14:20:Beth Salinas RN) History of Infertility: No (09/18/2016 14:20:Beth Salinas RN) History of ART Treatment: No (09/18/2016 14:20:Beth Salinas RN) History of ARUN: No (09/18/2016 14:20:Beth Salinas RN) Comments Obstetrical History: G1: viable female 2008 G2: current (09/18/2016 14:20:Beth Salinas RN) MEDICAL HISTORY Med Hx Diabetes: No (09/18/2016 14:20:Beth Salinas RN) Med Hx Hypertension: No (09/18/2016 14:20:Beth Salinas RN) Med Hx Heart Disease: No (09/18/2016 14:20:Beth Salinas RN) Med Hx Autoimmune Disorder: No (09/18/2016 14:20:Beth Salinas RN) Med Hx Kidney Disease/UTI: No (09/18/2016 14:20:Beth Salinas RN) Med Hx Neurologic/Epilepsy: No (09/18/2016 14:20:Beth Salinas RN) Med Hx Psychiatric Disorders: No (09/18/2016 14:20:Beth Salinas RN) Med Hx Hepatitis/Liver Disease: No (09/18/2016 14:20:Beth Salinas RN) Med Hx Varicosities/Phlebitis: No (09/18/2016 14:20:Beht Salinas RN) Med Hx Thyroid Dysfunction: Yes (09/18/2016 14:20:Beth Salinas RN) Med Hx Trauma/Violence: No (09/18/2016 14:20:Beth Salinas RN) Med Hx Blood Transfusion: No (09/18/2016 14:20:Beth Salinas RN) Med Hx Pulmonary (Asthma,TB): No (09/18/2016 14:20:Beth Salinas RN) Med Hx Breast: No (09/18/2016 14:20:Beth Salinas RN) Med Hx AIRBORNE AND AIR DELIVERY SPECIALIST Surgery: No (09/18/2016 14:20:Beth Salinas RN) Med Hx Hospitalization/Surgery: Yes (09/18/2016 14:20:Beth Salinas RN) Med Hx Anesthetic Complications: No (09/18/2016 14:20:Beth Salinas RN) Med Hx Abnormal Pap Smear: No (09/18/2016 14:20:Beth Salinas RN) Other Medical Diseases: No (09/18/2016 14:20:Beth Salinas RN) Med Hx Significant Family Hx: No (09/18/2016 14:20:Beth Salinas RN) Details of Med/Surg Hx: Hashimotos, Graves, and thyroid nodule, on no medications History of abnormal pap, colpo, positive HPV (09/18/2016 14:20:Beth Salinas RN) INFECTIOUS HISTORY Inf Hx Gonorrhea: No (09/18/2016 14:20:Beth Salinas RN) Inf Hx Chlamydia: No (09/18/2016 14:20:Beth Salinas RN) Inf Hx Syphilis: No (09/18/2016 14:20:Beth Salinas RN) Inf Hx HIV/AIDS: No (09/18/2016 14:20:Beth Salinas RN) Inf Hx Human Papilloma Virus: Yes (09/18/2016 14:20:Beth Salinas RN) Inf Hx Pt/Partner Genital Herpes: No (09/18/2016 14:20:Beth Salinas RN) Inf Hx Tuberculosis/Exposure: No (09/18/2016 14:20:Beth Salinas RN) Inf Hx Hepatitis B,C: No (09/18/2016 14:20:Beth Salinas RN) Inf Hx Rash or Viral Illness: No (09/18/2016 14:20:Beth Salinas RN) GENETIC HISTORY Gen Hx Age >=35 at ALO: No (09/18/2016 14:20:Beth Salinas RN) Gen Hx Thalassemia: No (09/18/2016 14:20:Beth Salinas RN) Gen Hx Congenital Heart Defect: No (09/18/2016 14:20:Beth Salinas RN) Gen Hx Neural Tube Defect: No (09/18/2016 14:20:Beth Salinas RN) Gen Hx Down's Syndrome: No (09/18/2016 14:20:Beth Salinas RN) Gen Hx Shoaib-Sachs: No (09/18/2016 14:20:Bteh Salinas RN) Gen Hx Anthony: No (09/18/2016 14:20:Beth Salinas RN) Gen Hx Familial Dysautonomia: No (09/18/2016 14:20:Beth Salinas RN) Gen Hx Sickle Cell Disease/Trait: No (09/18/2016 14:20:Beth Salinas RN) Gen Hx Hemophilia/Blood Disorder: No (09/18/2016 14:20:Beth Salinas RN) Gen Hx Muscular Dystrophy: No (09/18/2016 14:20:Beth Salinas RN) Gen Hx Cystic Fibrosis: No (09/18/2016 14:20:Beth Salinas RN) Gen Hx Huntingtons Chorea: No (09/18/2016 14:20:Beth Salinas RN) Gen Hx Mental Retardation/Autism: No (09/18/2016 14:20:Beth Salinas RN) Gen Hx Tested for Fragile X: No (09/18/2016 14:20:Beth Salinas RN) Gen Hx Other Inher/Chromosomal: No (09/18/2016 14:20:Beth Salinas RN) Gen Hx Maternal Metabolic DO: No (09/18/2016 14:20:Beth Salinas RN) Gen Hx Pt Father or FOB Defect: No (09/18/2016 14:20:Beth Salinas RN) Gen Hx Other Genetic History: No (09/18/2016 14:20:Beth Salinas RN) Gen Hx Drugs/Meds since LMP: No (09/18/2016 14:20:Beth Salinas RN)
[2016-09-20] MEDS: IBUPROFEN 800 MG TABLET PO SCH ×3 (05:53→21:16)
--- NOTE | 2016-09-20 06:01 | L&D Current Admission ---
Current Admit Datetime Report Generated by CPN: 09/20/2016 06:00 ADMISSION INFORMATION Current Admit Date/Time: 09/18/2016 15:58 (09/18/2016 15:56:Beth Salinas RN) Reason for Admission: Rupture of Membranes (09/18/2016 15:56:Beth Salinas RN) Chief Complaint: Suspected Rupture of Membranes (Annotations: fern and nitrazine test in office today, both positive. Pooling noted upon exam. Patient states she first noticed the leaking at midnight 09/18/16) (09/18/2016 16:28:Beth Salinas RN) EGA per Dates: 38.1 (09/18/2016 15:56:QS system process) Method of Arrival: Ambulatory (09/18/2016 15:56:Beth Salinas RN) Reason for Induction: Not Applicable (09/18/2016 15:56:Beth Salinas RN) Records Available: Yes (09/18/2016 15:56:Beth Salinas RN) General Admission Information: Reviewed (09/18/2016 15:56:Beth Salinas RN) BELONGINGS/ADVANCED DIRECTIVES Valuables/Personal Effects: Purse/Wallet; Cell Phone; Jewelry (09/18/2016 15:56:Beth Salinas RN) Disposition of Belongings: Kept with Patient (09/18/2016 15:56:Beth Salinas RN) Advance Direct for Healthcare: No, and Wants No Information (09/18/2016 15:56:Beth Salinas RN) Durable Power of Double Spindle Shaper Operator: No (09/18/2016 15:56:Beth Salinas RN) Living Will: No (09/18/2016 15:56:Beth Salinas RN) Organ Donor: Yes (09/18/2016 15:56:Beth Salinas RN) Pt Rights Information Given: Yes (09/18/2016 15:56:Beth Salinas RN) Pt Understands Pt Rights: Yes (09/18/2016 15:56:Beth Salinas RN) LEARNING ASSESSMENT Knowledge Level: Understands L_D Process (09/18/2016 15:56:Beth Salinas RN) Learning Readiness: Motivated (09/18/2016 15:56:Beth Salinas RN) DOMESTIC VIOLANCE SCREENING Dom Viol Threatened/Hurt: No (09/18/2016 15:56:Beth Salinas RN) Hx of Abuse/Neglect past 2yrs: No (09/18/2016 15:56:Beth Salinas RN) Feel Unsafe Going Home: No (09/18/2016 15:56:Beth Salinas RN) Addt'l Observ Indicating Abuse: No (09/18/2016 15:56:Beth Salinas RN) Reason Unable to Complete Screen: N/A, Screen Completed (09/18/2016 15:56:Beth Salinas RN) Considered Personal Harm/Suicide: No (09/18/2016 15:56:Beth Salinas RN) NUTRITIONAL/FUNCTIONAL SCREENING Problem with Appetite >5 Days: No (09/18/2016 15:56:Beth Salinas RN) Chew/Swallow Difficulties: No (09/18/2016 15:56:Beth Salinas RN) Inappropriate Wt Gain/Loss: No (09/18/2016 15:56:Beth Salinas RN) Presence Skin Breakdown/Ulcer: No (09/18/2016 15:56:Beth Salinas RN) Special Diet: No (09/18/2016 15:56:Beth Salinas RN) Pt Requests Community Outreach Specialist Visit: No (09/18/2016 15:56:Beth Salinas RN) Hx of Any of the Following?: N/A (09/18/2016 15:56:Beth Salinas RN) New Diagnosis of: N/A (09/18/2016 15:56:Beth Salinas RN) Requires Assist w/Ambulation: No (09/18/2016 15:56:Beth Salinas RN) Uses Assist Device to Ambulate: No (09/18/2016 15:56:Beth Salinas RN) Pt Requires Help w/ADL's: No (09/18/2016 15:56:Beth Salinas RN)
--- NOTE | 2016-09-20 06:01 | L&D General Admission ---
General Admit Datetime Report Generated by CPN: 09/20/2016 06:00 INFORMATION Patient Age: 31 (07/25/2016 09:11:QS system process) EDC: 10/01/2016 00:00 (09/18/2016 14:20:Beth Salinas RN) : 2 (09/18/2016 14:20:Beth Salinas RN) Para: 1 (09/18/2016 14:20:Beth Salinas RN) Baby, Number in Womb: 1 (09/18/2016 14:20:Martha Schwartz RN) CARE Primary Investment Recovery [facility] (09/18/2016 14:20:Beth Salinas RN) Month of 1st Visit: January (09/18/2016 14:20:Beth Salinas RN) Adequate Care: Yes (09/18/2016 14:20:Beth Salinas RN) Height (in): 64 (09/19/2016 12:15:QS system process) ALLERGIES Medication Allergy: No (09/18/2016 14:20:Beth Salinas RN) Medication Allergies: No Known Allergies (09/18/2016) (09/18/2016 17:58:QS system process) Latex Allergy: No Latex Allergies (09/18/2016 14:20:Beth Salinas RN) Food Allergies: denies (09/18/2016 14:20:Beth Salinas RN) Environmental Allergies: denies (09/18/2016 14:20:Beth Salinas RN) COMMUNICATION Primary Language: Chinese (09/18/2016 14:20:Beth Salinas RN) Medical Tx Preferred Language: Chinese (09/18/2016 14:20:Beth Salinas RN) DEMOGRAPHICS Address: [address] [place] [id number] (07/25/2016 09:11:QS system process) Zipcode: [address] (07/25/2016 09:11:QS system process) Home (07/25/2016 09:11:QS system process) Work (07/25/2016 09:11:QS system process) SSN: [id number] (07/25/2016 09:11:QS system process) Next of Kin Name: YANA DONG (07/25/2016 09:11:QS system process) Next of Kin (07/25/2016 09:11:QS system process) Next of Kin Relationship: MO (07/25/2016 09:11:QS system process) Date of : 1985 (07/25/2016 09:11:QS system process) Marital Status: Single (07/25/2016 09:11:QS system process) Sex: Female (07/25/2016 09:11:QS system process) Race: (07/25/2016 09:11:QS system process) Ethnicity: Non- or (07/25/2016 09:11:QS system process) Alevism: No Worship Info Avail. (07/25/2016 09:11:QS system process) DRUG AND ALCOHOL USE Alcohol: No (09/18/2016 14:20:Beth Salinas RN) Cigarettes: Never Smoker. [id number] (09/18/2016 14:20:Beth Salinas RN) Marijuana: No (09/18/2016 14:20:Beth Salinas RN) Cocaine: No (09/18/2016 14:20:Beth Salinas RN) Other Illicit Drugs: No (09/18/2016 14:20:Beth Salinas RN) VACCINE HISTORY Influenza Vaccine: Yes (09/18/2016 14:20:Beth Salinas RN) Pneumococcal Vaccine: No (09/18/2016 14:20:Beth Salinas RN) Tdap Vaccine: Yes (09/18/2016 14:20:Beth Salinas RN) Hepatitis B Vaccine: Yes (09/18/2016 14:20:Beth Salinas RN) Plant Physiologist: [facility] (09/18/2016 14:20:Beth Salinas RN) Feeding Preference: Breast (09/18/2016 14:20:Beth Salinas RN) Benefit of Breast Feed Discussed: Yes (09/18/2016 14:20:Beth Salinas RN) Circumcision: N/A (09/18/2016 14:20:Beth Salinas RN) Classes Attended: No (09/18/2016 14:20:Beth Salinas RN) Tubal Ligation: No (09/18/2016 14:20:Beth Salinas RN) Tubal Authorization Signed: N/A (09/18/2016 14:20:Beth Salinas RN) Consent: N/A (09/18/2016 14:20:Beth Salinas RN) Consent Signed: N/A (09/18/2016 14:20:Beth Salinas RN) Pain Management Plans: Medications (09/18/2016 14:20:Beth Salinas RN) Support Person: Ismael Ascencio (09/18/2016 14:20:Beth Salinas RN) Support Person Relationship: Significant Other (09/18/2016 14:20:Beth Salinas RN) Cultural/Spritual Practice: No (09/18/2016 14:20:Beth Salinas RN) Spir/Cult Dietary Needs: No (09/18/2016 14:20:Beth Salinas RN) LIVING SITUATION/DISCHARGE PLAN Living Arrangements: House (09/18/2016 14:20:Beth Salinas RN) Adequate Access to:: Electric; Heat; Refrigeration; Plumbing/Running water; Phone; Transportation (09/18/2016 14:20:Beth Salinas RN) WIC Program: Yes (09/18/2016 14:20:Beth Salinas RN) Currently Using Commun Resources: No (09/18/2016 14:20:Beth Salinas RN) Outside Agency/Heliarc Welder: No (09/18/2016 14:20:Beth Salinas RN) Car Seat for Discharge: Yes (09/18/2016 14:20:Beth Salinas RN) Adoption Requested: No (09/18/2016 14:20:Beth Salinas RN) Pt Contact w/infant Post : N/A (09/18/2016 14:20:Beth Salinas RN) LABS Blood Type: O Positive (09/18/2016 14:20:Jing Antony RN) Antibody Screen: neg (09/18/2016 14:20:Jing Antony RN) Rho(G) this : Not Applicable (09/18/2016 14:20:Viktoriya Vanegas RN) Hemoglobin: 10.9 L (09/18/2016 16:20:QS system process) Hematocrit: 31.9 L (09/18/2016 16:20:QS system process) MCV: 88 (09/18/2016 16:20:QS system process) Group Beta Strep: Negative (09/18/2016 14:20:YOLI Escobar) Gonorrhea: Negative (09/18/2016 14:20:YOLI Escobar) Chlamydia: Negative (09/18/2016 14:20:YOLI Escobar) RPR/VDRL: Nonreactive (Annotations: Data stored by N on behalf of user) (09/18/2016 14:20:Jing Antony RN) HIV Exposure Test: Negative (09/18/2016 14:20:YOLI Escobar) Hepatitis B: Negative (09/18/2016 14:20:Jing Antony RN) Rubella: Immune (09/18/2016 14:20:Jing Antony RN) OB/PREVIOUS HISTORY Previous Procedures: Ultrasound; NST (09/18/2016 14:20:Beth Salinas RN) Current Procedures: Ultrasound; NST (09/18/2016 14:20:Beth Salinas RN) History of Previous : No (09/18/2016 14:20:Beth Salinas RN) History of Gestational Diabetes: No (09/18/2016 14:20:Beth Salinas RN) History of PIH: No (09/18/2016 14:20:Beth Salinas RN) History of Incompetent Cervix: No (09/18/2016 14:20:Beth Salinas RN) History of Placenta Previa/Abrup: No (09/18/2016 14:20:Beth Salinas RN) History of Macrosomia: No (09/18/2016 14:20:Beth Salinas RN) History of IUGR: No (09/18/2016 14:20:Beth Salinas RN) History of Hemorrhage: No (09/18/2016 14:20:Beth Salinas RN) History of Loss/Stillborn: No (09/18/2016 14:20:Beth Salinas RN) History of : No (09/18/2016 14:20:Beth Salinas RN) History of D (Rh) Sensitization: No (09/18/2016 14:20:Beth Salinas RN) History Recurrent Loss/Stillborn: No (09/18/2016 14:20:Beth Salinas RN) History Depression/PP Depression: No (09/18/2016 14:20:Beth Salinas RN) History of Uterine Anomaly/ARUN: No (09/18/2016 14:20:Beth Salinas RN) History of Infertility: No (09/18/2016 14:20:Beth Salinas RN) History of ART Treatment: No (09/18/2016 14:20:Beth Salinas RN) History of ARUN: No (09/18/2016 14:20:Beth Salinas RN) Comments Obstetrical History: G1: viable female 2008 G2: current (09/18/2016 14:20:Beth Salinas RN) MEDICAL HISTORY Med Hx Diabetes: No (09/18/2016 14:20:Beth Salinas RN) Med Hx Hypertension: No (09/18/2016 14:20:Beth Salinas RN) Med Hx Heart Disease: No (09/18/2016 14:20:Beth Salinas RN) Med Hx Autoimmune Disorder: No (09/18/2016 14:20:Beth Salinas RN) Med Hx Kidney Disease/UTI: No (09/18/2016 14:20:Beth Salinas RN) Med Hx Neurologic/Epilepsy: No (09/18/2016 14:20:Beth Salinas RN) Med Hx Psychiatric Disorders: No (09/18/2016 14:20:Beth Salinas RN) Med Hx Hepatitis/Liver Disease: No (09/18/2016 14:20:Beth Salinas RN) Med Hx Varicosities/Phlebitis: No (09/18/2016 14:20:Beth Salinas RN) Med Hx Thyroid Dysfunction: Yes (09/18/2016 14:20:Beth Salinas RN) Med Hx Trauma/Violence: No (09/18/2016 14:20:Beth Salinas RN) Med Hx Blood Transfusion: No (09/18/2016 14:20:Beth Salinas RN) Med Hx Pulmonary (Asthma,TB): No (09/18/2016 14:20:Beth Salinas RN) Med Hx Breast: No (09/18/2016 14:20:Beth Salinas RN) Med Hx HEAT TREATING BLUER Surgery: No (09/18/2016 14:20:Beth Salinas RN) Med Hx Hospitalization/Surgery: Yes (09/18/2016 14:20:Beth Salinas RN) Med Hx Anesthetic Complications: No (09/18/2016 14:20:Beth Salinas RN) Med Hx Abnormal Pap Smear: No (09/18/2016 14:20:Beth Salinas RN) Other Medical Diseases: No (09/18/2016 14:20:Beth Salinas RN) Med Hx Significant Family Hx: No (09/18/2016 14:20:Beth Salinas RN) Details of Med/Surg Hx: Hashimotos, Graves, and thyroid nodule, on no medications History of abnormal pap, colpo, positive HPV (09/18/2016 14:20:Beth Salinas RN) INFECTIOUS HISTORY Inf Hx Gonorrhea: No (09/18/2016 14:20:Beth Salinas RN) Inf Hx Chlamydia: No (09/18/2016 14:20:Beth Salinas RN) Inf Hx Syphilis: No (09/18/2016 14:20:Beth Salinas RN) Inf Hx HIV/AIDS: No (09/18/2016 14:20:Beth Salinas RN) Inf Hx Human Papilloma Virus: Yes (09/18/2016 14:20:Beth Salinas RN) Inf Hx Pt/Partner Genital Herpes: No (09/18/2016 14:20:Beth Salinas RN) Inf Hx Tuberculosis/Exposure: No (09/18/2016 14:20:Beth Salinas RN) Inf Hx Hepatitis B,C: No (09/18/2016 14:20:Beth Salinas RN) Inf Hx Rash or Viral Illness: No (09/18/2016 14:20:Beth Salinas RN) GENETIC HISTORY Gen Hx Age >=35 at ALO: No (09/18/2016 14:20:Beth Salinas RN) Gen Hx Thalassemia: No (09/18/2016 14:20:Beth Salinas RN) Gen Hx Congenital Heart Defect: No (09/18/2016 14:20:Beth Salinas RN) Gen Hx Neural Tube Defect: No (09/18/2016 14:20:Beth Salinas RN) Gen Hx Down's Syndrome: No (09/18/2016 14:20:Beth Salinas RN) Gen Hx Shoaib-Sachs: No (09/18/2016 14:20:Beth Salinas RN) Gen Hx Anthony: No (09/18/2016 14:20:Beth Salinas RN) Gen Hx Familial Dysautonomia: No (09/18/2016 14:20:Beth Salinas RN) Gen Hx Sickle Cell Disease/Trait: No (09/18/2016 14:20:Beth Salinas RN) Gen Hx Hemophilia/Blood Disorder: No (09/18/2016 14:20:Beth Salinas RN) Gen Hx Muscular Dystrophy: No (09/18/2016 14:20:Beth Salinas RN) Gen Hx Cystic Fibrosis: No (09/18/2016 14:20:Beth Salinas RN) Gen Hx Huntingtons Chorea: No (09/18/2016 14:20:Beth Salinas RN) Gen Hx Mental Retardation/Autism: No (09/18/2016 14:20:Beth Salinas RN) Gen Hx Tested for Fragile X: No (09/18/2016 14:20:Beth Salinas RN) Gen Hx Other Inher/Chromosomal: No (09/18/2016 14:20:Beth Salinas RN) Gen Hx Maternal Metabolic DO: No (09/18/2016 14:20:Beth Salinas RN) Gen Hx Pt Father or FOB Defect: No (09/18/2016 14:20:Beth Salinas RN) Gen Hx Other Genetic History: No (09/18/2016 14:20:Beth Salinas RN) Gen Hx Drugs/Meds since LMP: No (09/18/2016 14:20:Beth Salinas RN)
--- NOTE | 2016-09-20 06:16 | L&D Care Plan ---
LD CARE PLANS Datetime Report Generated by CPN: 09/20/2016 06:15 Datetime: 09/18/2016 16:02 Pain State: Risk For (Lacho Mathew RN) Related To: Labor and Delivery Process (Lacho Mathew RN) Goal(s): Patients Pain will be Assessed and Managed; Patient will Verbalize Adequate Relief of Pain or the Ability to [place] with Current Pain (Lacho Mathew RN) Interventions: Assess Pain Severity on Scale of 0 (None) to 5 (Severe); Assess Type, Location and Intensity of Pain Each Time Client Reports Discomfort and Notify Provider if Unusal Pain Develops; Encourage Proper Breathing and Relaxation Techniques; Offer Alternatives Such as Repositioning, Calm Environment, Massages, Diversional Activities, Ice Pack, Splinting, and Ambulation; Administer Analgesics as Ordered; Assist with Epidural Placement as Appropriate; Evaluate Therapeutic Effectiveness of Medication and Treatments (Lacho Mathew RN) Outcome: Patient will Report Absence or Relief of Pain Consistent with Established Pain Goal (Lacho Mathew RN) Status: Ongoing (Lacho Mathew RN) Outcome: Patient will have a Decrease in Signs and Symptoms of Discomfort (Lacho Mathew RN) Status: Ongoing (Lacho Mathew RN) Outcome: Pain will be Controlled During Procedures (Lacho Mathew RN) Status: Ongoing (Lacho Mathew RN) Anxiety State: Risk For (Lacho Mathew RN) Related To: Labor and Delivery Process; Significant Life Event (Lacho Mathew RN) Goal(s): Patient will have Decreased Anxiety and be able to Function at Acceptable Levels (Lacho Mathew RN) Interventions: Assess Verbal and Nonverbal Behavioral Indicators of Anxiety; Assist Patient to Identify and Verbalize Symptoms of Anxiety; Identify and Demonstrate Techniques to Control Anxiety; Assist Patient with Coping Mechanisms to Manage Anxiety; Explain to Patient, Using a Calm Reassuring Approach and Nonmedical Terms, All Activities, Procedures, and Concerns; Instruct Patient and Family about Post Discharge Care, Limitations, Symptoms to Report and Resources Available (Lacho Mathew RN) Outcome: Patient will Identify, Verbalize and Demonstrate Techniques to Control Anxiety (Lacho Mathew RN) Outcome: Patient's Posture, Facial Expressions, Gestures and Activity Level will Reflect Decreased Anxiety (Lacho Mathew RN) Outcome: Patient will Verbalize a Sense of Control and/or Acceptance of the Situation (Lacho Mathew RN) Outcome: Patient will Identify and Utilize Support Person (Lacho Mathew RN) Status: Ongoing (Lacho Mathew RN) Knowledge Deficit State: Risk For (Lacho Mathew RN) Related To: Labor and Delivery Process (Lacho Mathew RN) Goal(s): Patient will Accurately Verbalize Understanding of Plan of Care and Treatment; Patient and Family will Accurately Verbalize Understanding of the Disease Process (Lacho Mathew RN) Interventions: Assess Motivation and Willingness of Patient/Family to Learn; Assess Preferred Learning Mode: One to One Instruction, Reading, Videos, Group Discussion or Demonstration; Assess Barriers to Learning: Pain, Emotional State, Language Barrier, Cognitive Impairment, Visual or Hearing Deficits; Assess Patient and Family Knowledge of Disease Process, Medications and Treatment; Discuss Therapy and/or Treatment Options, Describe Rationale Behind Management, Therapy and Treatment Recommendations; Instruct Patient and Family on Signs and Symptoms to Report; Instruct Patient and Family on Medication Effects and Side Effects; Provide Appropriate and Timely Education Using Multiple Techniques; Provide Patient and Family with Support Group Information and Resources; Give Clear and Thorough Explanations and Demonstrations (Lacho Mathew RN) Outcome: Patient and Family will Verbalize Understanding of Condition, Treatment and Signs and Symptoms to Report (Lacho Mathew RN) Status: Ongoing (Lacho Mathew RN) Outcome: Patient will Identify Perceived Learning Needs and Express Motivation to Learn (Lacho Mathew RN) Status: Ongoing (Lacho Mathew RN) Outcome: Patient will Verbalize Understanding of Desired Content, and/or Performs Desired Skill Prior to Discharge (Lacho Mathew RN) Status: Ongoing (Lacho Mathew RN) Infection State: Risk For (Lacho Mathew RN) Related To: Invasive Procedures (Lacho Mathew RN) Goal(s): The Patient will be Free of Infection, Vital Signs Stable and Lab Work within Normal Parameters (Lacho Mathew RN) Interventions: Instruct and Reinforce Proper Handwashing, Hygiene, and Care Techniques to Patient and Family; Monitor Vital Signs; Monitor Patient for the Following Signs of Infection: Fever, Abdominal Tenderness, Unusual Discharge; Monitor Aminiotic Fluid, Urine and Lochia for Color and Odor; Observe Wounds, Incisions and Invasive Line Sites for Redness, Drainage and Edema; Assess IV Sites per Hospital Policy; Monitor Lab and Test Results and Notify Provider of Abnormal Findings; Assess Nutritional Status and Promote Good Nutrition (Lacho Mathew RN) Outcome: Patient will Remain Free of Infection (Lacho Mathew RN) Status: Ongoing (Lacho Mathew RN) Outcome: Infection will be Recognized Early to Allow for Prompt Treatment (Lacho Mathew RN) Status: Ongoing (Lacho Mathew RN) Outcome: Patient will have Vital Signs Within Expected Range (Lacho Mathew RN) Status: Ongoing (Lacho Mathew RN) Injury State: Risk For (Lacho Mathew RN) Related To: Labor and Delivery Process (Lacho Mathew RN) Goal(s): Patient will Remain Free from Injury (Lacho Mathew RN) Interventions: Monitoring as per Hospital Protocol; Assess Neurological Status; Perform Risk Assessment of Patients with Induction and ; Perform Fall Risk Assessment and Prevention per Hospital Protocol; Perform DVT Risk Assessment and Prophylaxis per Hospital Protocol; Ensure that Oxygen, Suction, and Resuscitation Medications and Equipment are Readily Available; Confirm Patient ID Prior to Procedure(s) and Medication Administration per Hospital Policy (Lacho Mathew RN) Outcome: Successful Fall Risk Prevention (Lacho Mathew RN) Status: Ongoing (Lacho Mathew RN) Outcome: Patient will Deliver without Adverse [place] (Lacho Mathew RN) Status: Ongoing (Lacho Mathew RN) Outcome: Patient's Neurological Status will Remain Stable (Lacho Mathew RN) Status: Ongoing (Lacho Mathew RN) Impaired Skin Integrity State: Risk For (Lacho Mathew RN) Related To: Vaginal Delivery; Invasive Procedures (Lacho Mathew RN) Goal(s): Patient will Maintain Optimal Skin Integrity, Free of Breakdown, Injury or Infection (Lacho Mathew RN) Interventions: Complete Screening for Pressure Ulcer Risk and Initiate Protocol per Hospital Policy; Monitor Site of Skin Impairment for Color Changes, Redness, Swelling, Warmth, Pain or Other Signs of Infection; Encourage and Assist with Position Changes; Monitor Patient's Mobility Status; Provide Adequate Nutrition and Fluids; Teach Patient Appropriate Hygienic Care; Teach Patient/Family Skin Care Management (Lacho Mathew RN) Outcome: Patient will not have Evidence of Injury Such as Skin Breakdown, Scrapes, Cuts, or Bruising (Lacho Mathew RN) Status: Ongoing (Lacho Mathew RN) Outcome: Patient will Report Any Altered Sensation or Pain at Site of Skin Impairment (Lacho Mathew RN) Status: Ongoing (Lacho Mathew RN) Outcome: Patients Incisions and Wounds will be without Signs or Symptoms of Infection (Lacho Mathew RN) Status: Ongoing (Lacho Mathew RN) Outcome: Patient will Demonstrate Understanding of Plan to Heal Skin and Prevent Reinjury and Verbalize Risk Factors (Lacho Mathew RN) Status: Ongoing (Lacho Mathew RN)
[2016-09-20 07:28] LABS: HEMATOCRIT 30.5 % (36.0-47.0); HEMOGLOBIN 10.4 g/dL (12.0-15.5); HGB HCT DIFFERENCE 0.7; MEAN CORPUSCULAR HEMOGLOBIN 30.2 pg (27.0-33.4); MEAN CORPUSCULAR VOLUME 89 fl (80-97); RED BLOOD COUNT 3.43 10^6/uL (3.72-5.28); RED CELL DISTRIBUTION WIDTH 13.4 % (11.5-14.0)
[2016-09-20] MEDS: DOCUSATE SODIUM 100 MG CAPSULE PO SCH ×2 (09:15→18:04)
[2016-09-20] MEDS: FERROUS SULFATE 325 MG TABLET PO SCH ×2 (09:15→18:04)
[2016-09-20] MEDS: SENNOSIDES/DOCUSATE 8.6-50 MG 1 EACH TABLET PO SCH (09:16)
[2016-09-20] MEDS: PRENATAL VITAMIN W-O CA NO5/FE FUMARATE/FA CAPSULE PO SCH (09:16)
--- NOTE | 2016-09-20 11:18 | PDOC PROGRESS REPORT ---
Subjective-OB Subjective: Post Delivery Day: 31 year old. Denies any needs at this time. Pt doing well, no concerns. Reports light bleeding, regular diet and voiding without difficulty. Physical Exam (OB) Vital Signs: Temp Pulse Resp BP Pulse Ox 97.5 F 69 14 105/65 100 09/20/16 07:43 09/20/16 07:43 09/20/16 07:43 09/20/16 07:43 09/20/16 07:43 Intake & Output 09/19/16 09/20/16 09/21/16 06:59 06:59 06:59 Weight 87.8 kg - Lochia Lochia Amount: Scant < 10 ml Lochia Color: Rubra/Red - Abdomen Description: Tender, Soft Hernia Present: No Fundal Description: Firm, Midline Fundal Height: u/u - u/2 Objective-Diagnostic Laboratory: 09/20/16 07:10 09/20/16 07:10 WBC 9.0 RBC 3.43 L Hgb 10.4 L Hct 30.5 L MCV 89 MCH 30.2 MCHC 34.0 RDW 13.4 Plt Count 263 Assessment and Plan(PN) - Assessment and Plan (1) Delivery normal Is this a current diagnosis for this admission?: Yes - Time Spent with Patient Time with patient: Less than 15 minutes Medications reviewed and adjusted accordingly: Yes - Disposition Anticipated Discharge: Home Within: within 24 hours
[2016-09-21] MEDS: IBUPROFEN 800 MG TABLET PO SCH (06:25)
[2016-09-21 08:32] VITALS: BP 103/56
[2016-09-21] MEDS: PRENATAL VITAMIN W-O CA NO5/FE FUMARATE/FA CAPSULE PO SCH (09:06)
[2016-09-21] MEDS: SENNOSIDES/DOCUSATE 8.6-50 MG 1 EACH TABLET PO SCH (09:06)
[2016-09-21] MEDS: DOCUSATE SODIUM 100 MG CAPSULE PO SCH (09:06)
[2016-09-21] MEDS: FERROUS SULFATE 325 MG TABLET PO SCH (09:06)
--- NOTE | 2016-09-21 09:57 | PDOC DISCHARGE SUMMARY ---
Final Diagnosis Discharge Date: 09/21/16 - Final Diagnosis (1) Delivery normal Is this a current diagnosis for this admission?: Yes (2) [place]'s disease Is this a current diagnosis for this admission?: Yes Discharge Data - Discharge Medication Home Medications: Docusate Sodium [Colace 100 mg Capsule] 100 mg PO BID #60 capsule 09/21/16 Ibuprofen [Motrin 800 mg Tablet] 800 mg PO Q8 #60 tablet 09/21/16 - Rembert Data Baby 1 Female Weight: 3205 kg Home with Mother: Yes Complications: No - Diagnosis Test Laboratory: Temp Pulse Resp BP Pulse Ox 97.9 F 77 16 103/56 L 100 09/21/16 08:21 09/21/16 08:21 09/21/16 08:21 09/21/16 08:21 09/21/16 08:21 09/18/16 09/18/16 09/20/16 15:45 16:20 07:10 RBC 3.62 L 3.43 L Hgb 10.9 L 10.4 L Hct 31.9 L 30.5 L Urine Opiates Screen NEGATIVE - Discharge information/Instructions Discharge Activity: Activity As Tolerated, Balance Activity w/Rest, No Lifting Over 10 Pounds, No Lifting/Push/Pulling, Pelvic Rest, Slowly Increase Activity, No tub bath, Walk Frequently Discharge Diet: Regular Disposition: HOME, SELF-CARE Follow up with: [facility] in: 4, Weeks
== END 2016-09-21 12:14 | disposition home or self-care (01) | DRG 775 ==
LOC: LC 15:35 → LR 15:37 → 2S 09-19 04:26
PROVIDERS: ADMIT Obstetrics & Gynecology; ATTEND Specialist
PROC: 10E0XZZ Delivery of Products of Conception, External Approach (ICD-10-PCS; principal; 2016-09-19)
PROC: 4A1HXCZ Monitoring of Products of Conception, Cardiac Rate, External Approach (ICD-10-PCS; 2016-09-19)
DX: O62.3 Precipitate labor (principal); O99.284 Endocrine, nutritional and metabolic diseases complicating childbirth; O69.81X0 Labor and delivery complicated by cord around neck, without compression, not applicable or unspecified; E06.3 Autoimmune thyroiditis; E05.00 Thyrotoxicosis with diffuse goiter without thyrotoxic crisis or storm; Z3A.38 38 weeks gestation of pregnancy; Z37.0 Single live birth
CPT/HCPCS: 36415; 80307; 81005; 85025; 85027; 86592; 86850; 86900; 86901; J0290; J2300; J2550; J2590; J3490

== ENCOUNTER 2016-12-12 15:19 | Emergency (ER) | payer BC, MEDICAID ==
[2016-12-12] MEDS ORDERED: ONDANSETRON 4 MG TAB.RAPDIS PO ONE (16:01)
--- NOTE | 2016-12-12 16:02 | ER Document Report ---
ED Medical Screen (RME) - General Chief Complaint: Vomiting Stated Complaint: NAUSEA AND VOMITING Mode of Arrival: Ambulatory Information source: Patient Notes: This is a 31-year-old female who presents with epigastric abdominal crampy pain that began this morning. She states that she has vomited about 10 times today. She has tried Pepto and Zofran at home and continues to vomit. Her last bowel movement was 2 days ago. She denies any fevers or chills. She denies dysuria. LMP October 31. I have greeted and performed a rapid initial assessment of this patient. A comprehensive ED assessment and evaluation of the patient, analysis of test results and completion of the medical decision making process will be conducted by additional ED providers. TRAVEL OUTSIDE OF THE [place] IN LAST 30 DAYS: No - Related Data Allergies/Adverse Reactions: No Known Allergies Allergy (Verified 09/18/16 17:57) Past Medical History Renal/ Medical History: Denies: Hx Peritoneal Dialysis Physical Exam - Vital signs Vitals: Temp Pulse Resp BP Pulse Ox 98.2 F 64 14 108/64 100 12/12/16 15:22 12/12/16 15:22 12/12/16 15:22 12/12/16 15:22 12/12/16 15:22 Course - Vital Signs Vital signs: Temp Pulse Resp BP Pulse Ox 98.2 F 64 14 108/64 100 12/12/16 15:22 12/12/16 15:22 12/12/16 15:22 12/12/16 15:22 12/12/16 15:22 - Laboratory Result Diagrams: 12/12/16 16:10 12/12/16 16:10 Laboratory results interpreted by me: 12/12/16 12/12/16 16:10 16:15 WBC 11.4 H RDW 14.3 H Seg Neutrophils % 88.7 H Lymphocytes % 7.9 L Absolute Neutrophils 10.1 H Urine Ketones 20 H
[2016-12-12 16:36] LABS: ABSOLUTE LYMPHOCYTES (AUTO) 0.9 10^3/uL (0.5-4.7); ABSOLUTE MONOCYTES (AUTO) 0.4 10^3/uL (0.1-1.4); ABSOLUTE NEUT (AUTO) 10.1 10^3/uL (1.7-8.2); BASOPHILS % (AUTO) 0.1 % (0-2); HEMATOCRIT 41.4 % (36.0-47.0); HEMOGLOBIN 13.7 g/dL (12.0-15.5); HGB HCT DIFFERENCE -0.3; LYMPHOCYTES % (AUTO) 7.9 % (13-45); MEAN CORPUSCULAR HEMOGLOBIN 28.9 pg (27.0-33.4); MEAN CORPUSCULAR HGB CONC 33.1 g/dL (32.0-36.0); MEAN CORPUSCULAR VOLUME 88 fl (80-97); MONOCYTES % (AUTO) 3.3 % (3-13); RED BLOOD COUNT 4.74 10^6/uL (3.72-5.28); RED CELL DISTRIBUTION WIDTH 14.3 % (11.5-14.0); SEGMENTED NEUTROPHILS % (AUTO) 88.7 % (42-78); WHITE BLOOD COUNT 11.4 10^3/uL (4.0-10.5)
[2016-12-12 16:50] LABS: ALANINE AMINOTRANSFERASE 50 U/L (9-52); ALBUMIN 4.6 g/dL (3.5-5.0); ALKALINE PHOSPHATASE 78 U/L (38-126); ANION GAP 14 (5-19); ASPARTATE AMINO TRANSFERASE 24 U/L (14-36); BILIRUBIN,DIRECT 0.3 mg/dL (0.0-0.4); BILIRUBIN,TOTAL 0.9 mg/dL (0.2-1.3); BLOOD UREA NITROGEN 11 mg/dL (7-20); CALCIUM 10.1 mg/dL (8.4-10.2); CARBON DIOXIDE 24 mmol/L (22-30); CHLORIDE 106 mmol/L (98-107); CREATININE RESULT 0.84 mg/dL (0.52-1.25); GLUCOSE 102 mg/dL (75-110); LIPASE 73.9 U/L (23-300); SODIUM 143.9 mmol/L (137-145); TOTAL PROTEIN 7.6 g/dL (6.3-8.2)
[2016-12-12 17:57] LABS: AMORPHOUS SEDIMENT,URINE 2+ /HPF; APPEARANCE,URINE TURBID; BILIRUBIN,URINE NEGATIVE (NEGATIVE); GLUCOSE, URINE NEGATIVE (NEGATIVE); KETONES,URINE 20 mg/dL (NEGATIVE); LEUKOCYTE ESTERASE,URINE NEGATIVE (NEGATIVE); NITRITE,URINE NEGATIVE (NEGATIVE); PROTEIN,URINE NEGATIVE (NEGATIVE); URINE SPECIFIC GRAVITY 1.031; UROBILINOGEN,URINE NEGATIVE mg/dL (<2.0)
[2016-12-12] MEDS ORDERED: ONDANSETRON HCL INJ/PF 4 MG/2 ML SDV IV ONE (18:21)
[2016-12-12] MEDS ORDERED: NORMAL SALINE 1000 ML 1,000 ML IV ONE (18:21)
--- NOTE | 2016-12-12 18:26 | ER Document Report ---
ED GI/ - General Chief Complaint: Vomiting Stated Complaint: NAUSEA AND VOMITING Mode of Arrival: Ambulatory Information source: Patient Notes: 31-year-old female with past medical history as recorded who presents today with the onset this morning of nausea and vomiting. She states some mild epigastric nonradiating abdominal "pain" before vomiting. She denies any other aggravating or relieving factors. She denies any diarrhea or fevers. She denies any dysuria or vaginal discharge. She denies any lower abdominal pain. TRAVEL OUTSIDE OF THE [place] IN LAST 30 DAYS: No - HPI Patient complains to provider of: Abdominal pain Onset: Other - See above Timing/Duration: Gradual Quality of pain: Achy Severity at maximum: Moderate Severity in ED: Mild, Moderate Pain Level: Denies Location: Epigastric Vaginal bleeding (Compared to normal period): None Sexual history: Inactive Associated symptoms: Other - See above Exacerbated by: Denies Relieved by: Denies Similar symptoms previously: No Recently seen / treated by doctor: No - Related Data Allergies/Adverse Reactions: No Known Allergies Allergy (Verified 09/18/16 17:57) Past Medical History - General Information source: Patient - Social History Smoking Status: Unknown if Ever Smoked Cigarette use (# per day): No Chew tobacco use (# tins/day): No Smoking Education Provided: No Frequency of alcohol use: None Drug Abuse: None Family History: Reviewed & Not Pertinent Renal/ Medical History: Denies: Hx Peritoneal Dialysis Review of Systems - Review of Systems Constitutional: denies: Fever EENT: denies: Eye discharge, Nose discharge Cardiovascular: denies: Chest pain, Palpitations Respiratory: denies: Short of breath Gastrointestinal: Nausea, Vomiting. denies: Abdomen distended, Diarrhea Genitourinary: denies: Dysuria Musculoskeletal: denies: Leg swelling Skin: Other - no hives. denies: Rash Neurological/Psychological: Other - no slurred speech -: Yes All other systems reviewed and negative Physical Exam - Vital signs Vitals: Temp Pulse Resp BP Pulse Ox 98.2 F 64 14 108/64 100 12/12/16 15:22 12/12/16 15:22 12/12/16 15:22 12/12/16 15:22 12/12/16 15:22 Notes: Reviewed vital signs and nursing note as charted by RN. CONSTITUTIONAL: Alert and oriented and responds appropriately to questions. Well -appearing; well-nourished HEAD: Normocephalic; atraumatic EYES: Sclerae non-icteric CARD: Regular rate and rhythm; no murmurs, no clicks, no rubs, no gallops; symmetric distal pulses RESP: Normal chest excursion without splinting or tachypnea; breath sounds clear and equal bilaterally ABD/GI: Normal bowel sounds; non-distended; soft, mildly tender to palpation of the epigastric and left upper quadrant. Negative Loving sign. BACK: The back appears normal and is non-tender to palpation, there is no CVA tenderness EXT: Normal ROM in all joints; non-tender to palpation; no cyanosis, no effusions, no edema SKIN: Normal color for age and race; warm; dry; good turgor; capillary refill < 2 seconds; no acute lesions noted NEURO: Moves all extremities equally; Motor and sensory function intact PSYCH: The patient's mood and manner are appropriate. Grooming and personal hygiene are appropriate. Course - Re-evaluation Re-evalutation: Given the history and physical examination we will order basic labs, abdominal labs, urine and urinalysis, and a three-way x-ray of the abdomen. 12/12/16 18:25 Abdominal labs as recorded. Three-way x-ray of the abdomen pending. We will provide fluids and nausea medications. Normal liver panel, lipase, with a negative Loving sign. I do not believe ultrasound is necessary at this time. 12/12/16 19:21 X-ray unremarkable. Patient states she feels "better". Patient has received a liter of fluid. No change in exam. Patient will be discharged home with strict return precautions and antinausea medications. - Vital Signs Vital signs: Temp Pulse Resp BP Pulse Ox 98.2 F 64 14 108/64 100 12/12/16 15:22 12/12/16 15:22 12/12/16 15:22 12/12/16 15:22 12/12/16 15:22 - Laboratory Result Diagrams: 12/12/16 16:10 12/12/16 16:10 Laboratory results interpreted by me: 12/12/16 12/12/16 16:10 16:15 WBC 11.4 H RDW 14.3 H Seg Neutrophils % 88.7 H Lymphocytes % 7.9 L Absolute Neutrophils 10.1 H Urine Ketones 20 H Discharge - Discharge Clinical Impression: Vomiting Qualifiers: Vomiting type: unspecified Vomiting Intractability: non-intractable Nausea presence: without nausea Qualified Code(s): R11.11 - Vomiting without nausea Condition: Good Disposition: HOME, SELF-CARE Instructions: Antinausea Medication ([facility]), Intravenous (IV) Fluids ([facility]), Vomiting ([facility]) Additional Instructions: Come back immediately with any repeat vomiting, blood in vomit or diarrhea, fevers, return of pain, change in location or quality of pain, or any other acute problems. Prescriptions: Ondansetron HCl [Zofran 4 mg Tablet] 1 - 2 tab PO Q4H PRN #10 tablet PRN Reason:
[2016-12-12 20:08] VITALS: BP 108/71
== END 2016-12-12 19:25 | disposition home or self-care (01) ==
LOC: ER 15:19
DX: R11.11 Vomiting without nausea (principal); R10.13 Epigastric pain
CPT/HCPCS: 99283; 96374; 36415; 83690; 84703; 85025; 80053; 81001; 74022; S0119; J2405; J7030

== ENCOUNTER 2016-12-17 10:24 | Inpatient (IN) | payer BC, MEDICAID ==
[2016-12-17] MEDS ORDERED: LIDOCAINE 2% VISCOUS SOLN 20 ML UDCUP PO ONE (11:10)
[2016-12-17] MEDS ORDERED: MAG HYDROX/AL HYDROX/SIMETH SUSP 30 ML UDCUP PO ONE (11:10)
--- NOTE | 2016-12-17 11:11 | ER Document Report ---
HPI - HPI Pain Level: 4 - REPRODUCTIVE Reproductive: REPORTS: : - DERM Skin Color: Normal Past Medical History - Social History Family History: Reviewed & Not Pertinent Patient has suicidal ideation: No Patient has homicidal ideation: No Renal/ Medical History: Denies: Hx Peritoneal Dialysis Vertical Provider Document - INFECTION CONTROL TRAVEL OUTSIDE OF THE [place] IN LAST 30 DAYS: No - RESPIRATORY O2 Sat by Pulse Oximetry: 98 Course - Vital Signs Vital signs: Temp Pulse Resp BP Pulse Ox 98.4 F 83 16 106/67 98 12/17/16 10:33 12/17/16 10:33 12/17/16 10:33 12/17/16 10:33 12/17/16 10:33
--- NOTE | 2016-12-17 11:13 | ER Document Report ---
ED Medical Screen (RME) - General Chief Complaint: Abdominal Pain Stated Complaint: ABDOMINAL PAIN Time seen by provider: 11:11 Mode of Arrival: Ambulatory Information source: Patient Notes: 31-year-old female complaining of epigastric and left upper quadrant abdominal pain. She was seen in the emergency department 12/12/2016 for similar symptoms of epigastric pain but the radiation into the left upper quadrant started today. She is non-tender in her abdomen when she stands in triage. Denies alcohol. TRAVEL OUTSIDE OF THE [place] IN LAST 30 DAYS: No - Related Data Allergies/Adverse Reactions: No Known Allergies Allergy (Verified 12/17/16 10:32) Past Medical History Renal/ Medical History: Denies: Hx Peritoneal Dialysis Physical Exam - Vital signs Vitals: Temp Pulse Resp BP Pulse Ox 98.4 F 83 16 106/67 98 12/17/16 10:33 12/17/16 10:33 12/17/16 10:33 12/17/16 10:33 12/17/16 10:33 Course - Vital Signs Vital signs: Temp Pulse Resp BP Pulse Ox 98.4 F 83 16 106/67 98 12/17/16 10:33 12/17/16 10:33 12/17/16 10:33 12/17/16 10:33 12/17/16 10:33
[2016-12-17 11:32] LABS: ABSOLUTE EOSINOPHILS # (AUTO) 0.1 10^3/uL (0.0-0.6); ABSOLUTE MONOCYTES (AUTO) 0.8 10^3/uL (0.1-1.4); ABSOLUTE NEUT (AUTO) 9.7 10^3/uL (1.7-8.2); BASOPHILS % (AUTO) 0.3 % (0-2); EOSINOPHILS % (AUTO) 0.7 % (0-6); HEMATOCRIT 40.9 % (36.0-47.0); HEMOGLOBIN 13.7 g/dL (12.0-15.5); HGB HCT DIFFERENCE 0.2; MEAN CORPUSCULAR HEMOGLOBIN 29.1 pg (27.0-33.4); MEAN CORPUSCULAR HGB CONC 33.6 g/dL (32.0-36.0); MEAN CORPUSCULAR VOLUME 87 fl (80-97); MONOCYTES % (AUTO) 6.6 % (3-13); RED BLOOD COUNT 4.72 10^6/uL (3.72-5.28); SEGMENTED NEUTROPHILS % (AUTO) 83.4 % (42-78); WHITE BLOOD COUNT 11.6 10^3/uL (4.0-10.5)
[2016-12-17 11:55] LABS: APPEARANCE,URINE CLEAR; BILIRUBIN,URINE NEGATIVE (NEGATIVE); GLUCOSE, URINE NEGATIVE (NEGATIVE); KETONES,URINE NEGATIVE (NEGATIVE); LEUKOCYTE ESTERASE,URINE NEGATIVE (NEGATIVE); NITRITE,URINE NEGATIVE (NEGATIVE); PROTEIN,URINE NEGATIVE (NEGATIVE); URINE SPECIFIC GRAVITY 1.005; UROBILINOGEN,URINE NEGATIVE mg/dL (<2.0)
[2016-12-17 11:57] LABS: ALANINE AMINOTRANSFERASE 71 U/L (9-52); ALBUMIN 4.5 g/dL (3.5-5.0); ALKALINE PHOSPHATASE 108 U/L (38-126); ANION GAP 14 (5-19); ASPARTATE AMINO TRANSFERASE 96 U/L (14-36); BILIRUBIN,DIRECT 0.6 mg/dL (0.0-0.4); BILIRUBIN,TOTAL 1.6 mg/dL (0.2-1.3); BLOOD UREA NITROGEN 11 mg/dL (7-20); CALCIUM 9.9 mg/dL (8.4-10.2); CARBON DIOXIDE 26 mmol/L (22-30); CHLORIDE 104 mmol/L (98-107); CREATININE RESULT 0.86 mg/dL (0.52-1.25); GLUCOSE 108 mg/dL (75-110); LIPASE 53.8 U/L (23-300); POTASSIUM 4.3 mmol/L (3.6-5.0); SODIUM 143.9 mmol/L (137-145); TOTAL PROTEIN 7.4 g/dL (6.3-8.2)
--- NOTE | 2016-12-17 12:37 | ER Document Report ---
ED General - General Chief Complaint: Abdominal Pain Stated Complaint: ABDOMINAL PAIN Mode of Arrival: Ambulatory Information source: Patient Notes: Patient is a 31 year old female who presents with epigastric abdominal pain that started this morning. She was seen here for the same 2 days ago, was diagnosed with stomach virus after normal lab work and normal abdominal xrays. She states while in the shower this morning she pushed on the epigastric region of her abdomen and the pain shot cross to her LUQ. She endorses one episode of vomiting from the pain but no further nausea, vomiting. She denies any fever, chills, diarrhea, hematemesis, melena, BRBPR, dysuria, vaginal discharge or vaginal bleeding. She was given GI cocktail in triage which did provide some relief of her pain. TRAVEL OUTSIDE OF THE [place] IN LAST 30 DAYS: No - Related Data Allergies/Adverse Reactions: No Known Allergies Allergy (Verified 12/17/16 10:32) Home Medications: Current Home Medications No Home Medications 12/17/16 [History] Past Medical History - General Information source: Patient - Social History Smoking Status: Smoker,Current Status Unk Family History: Reviewed & Not Pertinent Patient has suicidal ideation: No Patient has homicidal ideation: No Renal/ Medical History: Denies: Hx Peritoneal Dialysis Review of Systems - Review of Systems Constitutional: See HPI EENT: No symptoms reported Cardiovascular: No symptoms reported Respiratory: No symptoms reported Gastrointestinal: See HPI Genitourinary: No symptoms reported Female Genitourinary: No symptoms reported Musculoskeletal: No symptoms reported Skin: No symptoms reported Hematologic/Lymphatic: No symptoms reported Neurological/Psychological: No symptoms reported Physical Exam - Vital signs Vitals: Temp Pulse Resp BP Pulse Ox 98.4 F 83 16 106/67 98 12/17/16 10:33 12/17/16 10:33 12/17/16 10:33 12/17/16 10:33 12/17/16 10:33 Interpretation: Normal - Notes Notes: PHYSICAL EXAM: CONSTITUTIONAL: Alert and oriented, well-appearing and in no acute distress. HENT: Normocephalic, atraumatic. Moist mucous membranes. EYES: Pupils equal round and reactive to light, EOM intact. Sclera anicteric, conjunctiva are normal. No entrapment. NECK: supple without lymphadenopathy. ROM intact. HEART: Regular rate and rhythm without murmurs. LUNGS: CTAB and equal. No wheezes, rales or rhonchi. GI: Hyperactive bowel sounds in all 4 quadrants. Tender to palpation in epigastric, LUQ and RUQ, non-distended. No organomegaly. no CVAT. No rebound or guarding. Pos Loving's sign. BACK: nontender, no paraspinous spasm, 5+/5 strengths, DTRs 2+, SLR -. EXTREMITIES: Normal range of motion, no pitting edema. No cyanosis. Cap Refill < 3 seconds. NEURO: Cranial nerves grossly intact. Normal sensory/motor exams. PSYCH: Normal mood, normal affect. SKIN: Warm and dry. Normal turgor. No rashes or lesions noted. Course - Re-evaluation Re-evalutation: 12/17/16 12:32 Patient seen and examined. Because patient was seen here 2 days ago with same complaints, now has positive Loving's sign on exam and slight elevation of total bili, AST/ALT, will obtain RUQ US. If inconclusive, will obtain abd/ pelvis CT w/ contrast. Patient reports pain improvement with GI cocktail. 12/17/16 14:34 Reviewed imaging studies - RUQ US shows cholelithiasis, thickening of GB wall, and pericholecystic fluid consistent with acute cholecystitis. I have consulted with the supervisory physician per [facility] guidelines. Will consult with surgery. 12/17/16 14:[address] Mast who will see patient in ED. Requested NPO, starting fluids and Unasyn. 12/17/16 17:53 Patient was seen by Dr. Mast who will admit for observation and order a HIDA scan to be done in the morning. Discussed with patient who agrees and has no complaints at this time. Patient ready for admission. - Vital Signs Vital signs: Temp Pulse Resp BP Pulse Ox 98.4 F 83 16 106/67 98 12/17/16 10:33 12/17/16 10:33 12/17/16 10:33 12/17/16 10:33 12/17/16 10:33 - Laboratory Result Diagrams: 12/17/16 11:15 12/17/16 11:15 Laboratory results interpreted by me: 12/17/16 12/17/16 11:15 11:15 WBC 11.6 H Seg Neutrophils % 83.4 H Lymphocytes % 9.0 L Absolute Neutrophils 9.7 H Total Bilirubin 1.6 H Direct Bilirubin 0.6 H AST 96 H ALT 71 H
[2016-12-17] MEDS ORDERED: NORMAL SALINE 1000 ML 1,000 ML IV ONE (14:21)
[2016-12-17] MEDS ORDERED: AMPICILLIN SOD/SULBACTAM 3 GM VIAL IV ONE ×2 (14:44→14:59)
[2016-12-17] MEDS ORDERED: MORPHINE SULFATE 10 MG/ML INJ IV ONE (14:53)
[2016-12-17] MEDS ORDERED: ONDANSETRON HCL INJ/PF 4 MG/2 ML SDV IV PRN (18:11)
[2016-12-17] MEDS ORDERED: HYDROMORPHONE HCL INJ/PF 2 MG/ML AMPULE IV PRN ×2 (18:16)
--- NOTE | 2016-12-17 19:03 | HISTORY AND PHYSICAL E ---
History and Physical NAME: ANGE DONG : 1985 AGE: 31Y ADMITTED: 12/17/2016 ROOM: REASON FOR ADMISSION: Acute abdominal pain. HISTORY OF PRESENT ILLNESS: The patient is a 31-year-old female who presents with epigastric to left lower quadrant abdominal pain starting 2 days ago. She came to the emergency room and it was felt to be due to a stomach virus. Her pain had improved, and she was discharged home. At that time, she was also having some loose stools that resolved. She has had a constant dull ache in the epigastric region and pushing on the area would cause more pain on the left side. This was not worsened with eating. She has minimal nausea. She denies any history of jaundice or peptic ulcer disease. ALLERGIES TO MEDICATIONS: None. MEDICATIONS: None. HABITS: The patient denies any smoking, alcohol, or drug use. SOCIAL HISTORY: The patient is single. FAMILY HISTORY: Lung and thyroid cancer. PAST SURGICAL HISTORY: [place] teeth. REVIEW OF SYSTEMS: A complete review of systems is obtained. Pertinent positives are gastrointestinal abdominal pain. Constitutional: Not feeling well. 12-point review of systems obtained with pertinent positives discussed and all others being negative. PHYSICAL EXAMINATION: VITAL SIGNS: Temperature 98.4, pulse 83, blood pressure 106/67, respirations 16. GENERAL: The patient is lying in bed in no acute distress. EYES: Anicteric. NECK: No lymphadenopathy. HEART: Regular. LUNGS: Clear. BACK: Nontender. ABDOMEN: Soft. Mild epigastric discomfort without peritoneal signs. She has recently had some IV pain medication. No hernias. EXTREMITIES: No edema or cyanosis. NEUROLOGIC: The patient appears to be neurologically intact without any deficits. PSYCHOLOGICAL: The patient is coherent, cooperative, and appears to answer questions fully. DIAGNOSTIC DATA: Ultrasound of the abdomen revealed gallbladder with small gallstones. Normal common bile duct. Mild thickening of the wall with minimal pericholecystic fluid being present. White blood cell count 11.6, hemoglobin 13.7, total bilirubin 1.6, direct 0.6, AST 96, ALT 71. test is negative. ASSESSMENT: 1. Epigastric and left upper quadrant abdominal pain of unknown etiology. This is not the typical presentation for gallbladder disease, although she does have some minimal findings of inflammation on ultrasound along with elevation of liver function tests. This certainly can be artifact and fatty liver. I recommend further evaluation to confirm biliary tract disease. I would recommend the patient be admitted for observation and undergo a hepatobiliary scan in the morning. 2. Elevated liver function tests of unknown etiology. Will do a hepatobiliary scan to rule out inflammation of the gallbladder as the cause of her elevated liver function tests. PLAN: 1. The patient will be admitted to the hospital. 2. Hepatobiliary scan in the morning. DICTATING PHYSICIAN: NICK KAHN M.D. [id number] PHY#: [id number] ID: [id number] JOB#: [id number] ACCT: [id number] cc: >
[2016-12-17] MEDS: PANTOPRAZOLE SODIUM 40 MG VIAL IV SCH (21:23)
[2016-12-17] MEDS: DEXTROSE 5%-LACTATED RINGERS 1,000 ML IV PRN (21:23)
[2016-12-18] MEDS: DEXTROSE 5%-LACTATED RINGERS 1,000 ML IV PRN ×2 (07:30→20:12)
[2016-12-18 09:20] LABS: HEMATOCRIT 37.1 % (36.0-47.0); HEMOGLOBIN 12.4 g/dL (12.0-15.5); HGB HCT DIFFERENCE 0.1; MEAN CORPUSCULAR HEMOGLOBIN 29.1 pg (27.0-33.4); MEAN CORPUSCULAR HGB CONC 33.3 g/dL (32.0-36.0); MEAN CORPUSCULAR VOLUME 87 fl (80-97); RED BLOOD COUNT 4.25 10^6/uL (3.72-5.28); RED CELL DISTRIBUTION WIDTH 14.2 % (11.5-14.0); WHITE BLOOD COUNT 4.5 10^3/uL (4.0-10.5)
[2016-12-18 09:44] LABS: ALANINE AMINOTRANSFERASE 584 U/L (9-52); ALBUMIN 3.6 g/dL (3.5-5.0); ALKALINE PHOSPHATASE 157 U/L (38-126); ANION GAP 10 (5-19); ASPARTATE AMINO TRANSFERASE 647 U/L (14-36); BILIRUBIN,DIRECT 1.6 mg/dL (0.0-0.4); BILIRUBIN,TOTAL 3.3 mg/dL (0.2-1.3); BLOOD UREA NITROGEN 10 mg/dL (7-20); CALCIUM 9.2 mg/dL (8.4-10.2); CARBON DIOXIDE 28 mmol/L (22-30); CHLORIDE 107 mmol/L (98-107); CREATININE RESULT 0.96 mg/dL (0.52-1.25); GLUCOSE 103 mg/dL (75-110); LIPASE 165.6 U/L (23-300); POTASSIUM 4.5 mmol/L (3.6-5.0); TOTAL PROTEIN 6.1 g/dL (6.3-8.2)
[2016-12-18] MEDS: PANTOPRAZOLE SODIUM 40 MG VIAL IV SCH ×2 (11:22→21:48)
[2016-12-18] MEDS: AMPICILLIN SOD/SULBACTAM 3 GM VIAL IV SCH ×2 (12:42→18:07)
[2016-12-18] MEDS ORDERED: NALOXONE HCL INJ/PF 0.4 MG/1 ML SDV ONE (15:10)
[2016-12-18] MEDS ORDERED: FENTANYL CITRATE INJ/PF 100 MCG/2 ML AMPUL ONE (15:10)
[2016-12-18] MEDS ORDERED: FLUMAZENIL INJ 0.5 MG/5 ML VIAL IV ONE (15:11)
[2016-12-18] MEDS ORDERED: EPINEPHRINE INJ 1 MG/10 ML DISP.SYRIN ONE (15:11)
[2016-12-18] MEDS ORDERED: GLUCAGON,HUMAN RECOMB 1 MG INJ ONE (15:11)
[2016-12-18] MEDS: MIDAZOLAM 2 MG/2 ML INJ ONE ×3 (15:58→16:08)
--- NOTE | 2016-12-18 16:21 | PDOC CONSULTATION ---
Consultation Consult Date: 12/17/16 History of Present Illness Admission Date/PCP: 12/17/16 21:04 NAOMI RAMÍREZ MD History of Present Illness: This is a 31-year-old patient who was admitted with recurrent abdominal pain for the last one week. She has had recurrent epigastric pain initially associated with nausea and vomiting. She presented to the hospital on 2016 when her blood work including LFTs and lipase were normal. She came back on 12/17/2016 with a slightly elevated bilirubin of 1.6 but by 01-02 her bilirubin was 3.3. Transaminases were also in the 100s. Her ultrasound showed gallstones with mild thickening of her gallbladder wall but no dilated ducts. She had a HIDA scan that showed activity in the liver but not in the bile duct. Social History Smoking Status: Never Smoker Hx Recreational Drug Use: Yes Hx Prescription Drug Abuse: No Family History Family History: Reviewed & Not Pertinent Parental Family History Reviewed: No Children Family History Reviewed: NA Sibling(s) Family History Reviewed.: NA Medication/Allergy Home Medications: No Home Medications 12/17/16 Allergies/Adverse Reactions: No Known Allergies Allergy (Verified 12/17/16 10:32) Review of Systems All systems: reviewed and no additional remarkable complaints except as stated Physical Exam Vital Signs: Temp Pulse Resp BP Pulse Ox 98.0 F 77 16 106/76 98 12/18/16 11:45 12/18/16 15:45 12/18/16 15:45 12/18/16 15:45 12/18/16 15:45 Intake & Output 12/17/16 12/18/16 12/19/16 06:59 06:59 06:59 Intake Total 0 Output Total 300 Balance -300 0 Exam: General: Patient is alert and looks well. HEENT: There is no pallor or jaundice. PERRLA. Oropharynx normal Respiratory: No chest deformity. No respiratory distress. Chest wall palpitation was unremarkable. Breath sounds were normal Cardiovascular: Heart sounds 1 and 2 normal with no murmurs. Abdominal: Not distended. Soft and nontender. Liver and spleen not palpable. No ascites demonstrated. Bowel sounds active. Rectal examination was deferred. Extremities: No edema Neurological: Alert and oriented x4. Grossly nonfocal. Normal speech Skin: No significant rash Psychological: Normal affect Results Laboratory Results: 12/18/16 08:15 12/18/16 08:15 12/18/16 12/18/16 08:15 08:15 WBC 4.5 RBC 4.25 Hgb 12.4 Hct 37.1 MCV 87 MCH 29.1 MCHC 33.3 RDW 14.2 H Plt Count 220 Sodium 145.0 Potassium 4.5 Chloride 107 Carbon Dioxide 28 Anion Gap 10 BUN 10 Creatinine 0.96 Est GFR ( Amer) > 60 Est GFR (Non-Af Amer) > 60 Glucose 103 Calcium 9.2 Total Bilirubin 3.3 H AST 647 H ALT 584 H Alkaline Phosphatase 157 H Total Protein 6.1 L Albumin 3.6 Lipase 165.6 Impressions: Abdomen Ultrasound 12/17/16 12:26 IMPRESSION: Cholelithiasis with thickening of the gallbladder wall and a small amount of pericholecystic fluid concerning for acute cholecystitis. Hepatobiliary Scan Nuclear Medicine 12/18/16 00:00 IMPRESSION: Persistent hepatic activity throughout the study, worrisome for high-grade biliary outflow obstruction from the distal common duct stone. Severe hepatocellular dysfunction could also cause this appearance. Nonvisualization of gallbladder Assessment & Plan - Diagnosis (1) Abnormal liver function Is this a current diagnosis for this admission?: YesPlan: Her recurrent epigastric pain with gallstones and jaundice is suggestive of choledocholithiasis. The need for an ERCP was explained to the patient and she is in agreement. She will undergo a cholecystectomy thereafter (2) Epigastric abdominal pain Is this a current diagnosis for this admission?: Yes (3) Jaundice Is this a current diagnosis for this admission?: Yes (4) Gallstones Is this a current diagnosis for this admission?: Yes
--- NOTE | 2016-12-18 16:22 | Operative Report ---
Operative Report DATE OF SURGERY: 12/18/16 Operative Report: Pre-op diagnosis: Abdominal pain and jaundice with gallstones Post-op diagnosis: Multiple common bile duct stones Surgery: ERCP with sphincterotomy and balloon stone extraction Medications: Versed 4mg Fentanyl 100mcg IV push Tissue removed: None Procedure: After informed consent obtained from patient, the throat was sprayed with Hurricane and conscious sedation was achieved. The ERCP endoscope was then inserted into the esophagus blindly and advanced into the stomach. The duodenum was entered and the ampulla was identified. Using the triple-lumen sphincterotomy catheter the common bile duct was freely cannulated. A cholangiogram was obtained which showed possible filling defect in the distal common bile duct. The common bile duct and intrahepatic ducts did not appear dilated. A good sized sphincterotomy was then performed using the endocut mode. The catheter was removed over the guidewire before a 9-12 mm balloon catheter was inserted. The balloon was inflated to 12 mm in the proximal common bile duct and pulled down the duct. Five small yellow stones were extracted. The duct was swept one more time. A balloon occlusion cholangiogram was normal. Patient tolerated procedure well. Findings Common bile duct: Five small yellow stones Intrahepatic ducts: Normal Pancreatic duct: Partially opacified and Normal Plan: Proceed with cholecystectomy OPERATION: .
[2016-12-18] MEDS ORDERED: GLUCAGON,HUMAN RECOMB 1 MG INJ SUBCUT PRN (17:07)
[2016-12-18] MEDS ORDERED: DEXTROSE 40% GEL 15 GM TUBE PO PRN ×2 (17:07)
[2016-12-18] MEDS ORDERED: DEXTROSE 50%-WATER 25 GM/50 ML DISP.SYRIN IV PRN ×2 (17:07)
--- NOTE | 2016-12-18 17:43 | PROGRESS NOTE E ---
Progress Note NAME: ANGE DONG : 1985 AGE: 31Y DATE: 12/18/2016 ROOM: 212 The patient presented with epigastric left upper quadrant abdominal pain. Ultrasound of the abdomen revealed cholelithiasis being present, bile duct 0.7 cm and mild thickening of the gallbladder wall with some surrounding fluid. SUBJECTIVE: The patient still has a dull ache in the abdominal region, midepigastric region without any nausea or vomiting. She has noticed her urine now more orange and being jaundiced. OBJECTIVE: ABDOMEN: Soft, nontender. DIAGNOSTIC DATA: White blood cell count 4.5, hemoglobin 12.4, total bilirubin 3.3, direct bilirubin 1.6, AST is 647, ALT of 584, alkaline phosphatase of 157. ASSESSMENT: 1. EPIGASTRIC PAIN. THE PATIENT'S WHITE COUNT IS NORMALIZED. HER LIVER FUNCTION TESTS HAVE NOW INCREASED. SHE HAD A HEPATOBILIARY SCAN WHICH DID NOT SHOW VISUALIZATION OF THE BILIARY TREE. THIS MAY BE DUE TO EITHER HEPATITIS VERSUS MORE LIKELY A COMMON BILE DUCT STONE OCCLUDING THE BILIARY TREE. WE HAVE DISCUSSED WITH GASTROENTEROLOGY FOR POSSIBLE ERCP VERSUS MRCP IN THE WORKUP. SHE HAS A COMMON BILE DUCT STONE THAT IS RETRIEVED BY ERCP AND THEN CONSIDERATION FOR LAP RENITA. THIS COULD BE DONE BEFORE OR AFTER THE ERCP. 2. CONTINUING THE IV ANTIBIOTICS. DICTATING PHYSICIAN: NICK KAHN M.D. [id number] VENUY#: [id number] ID: [id number] JOB#: [id number] ACCT: [id number] cc: >
[2016-12-19] MEDS: AMPICILLIN SOD/SULBACTAM 3 GM VIAL IV SCH ×4 (01:20→17:27)
[2016-12-19] MEDS: DEXTROSE 5%-LACTATED RINGERS 1,000 ML IV PRN ×2 (01:23→04:05)
[2016-12-19 06:32] LABS: ABSOLUTE EOSINOPHILS # (AUTO) 0.1 10^3/uL (0.0-0.6); ABSOLUTE LYMPHOCYTES (AUTO) 1.4 10^3/uL (0.5-4.7); ABSOLUTE MONOCYTES (AUTO) 0.6 10^3/uL (0.1-1.4); ABSOLUTE NEUT (AUTO) 5.3 10^3/uL (1.7-8.2); BASOPHILS % (AUTO) 0.3 % (0-2); EOSINOPHILS % (AUTO) 1.8 % (0-6); HEMATOCRIT 35.2 % (36.0-47.0); HGB HCT DIFFERENCE 0.8; LYMPHOCYTES % (AUTO) 19.2 % (13-45); MEAN CORPUSCULAR HEMOGLOBIN 29.5 pg (27.0-33.4); MEAN CORPUSCULAR VOLUME 87 fl (80-97); MONOCYTES % (AUTO) 7.4 % (3-13); RED BLOOD COUNT 4.07 10^6/uL (3.72-5.28); RED CELL DISTRIBUTION WIDTH 14.3 % (11.5-14.0); SEGMENTED NEUTROPHILS % (AUTO) 71.3 % (42-78); WHITE BLOOD COUNT 7.5 10^3/uL (4.0-10.5)
[2016-12-19 06:53] LABS: ALANINE AMINOTRANSFERASE 536 U/L (9-52); ALBUMIN 3.3 g/dL (3.5-5.0); ALKALINE PHOSPHATASE 161 U/L (38-126); ANION GAP 11 (5-19); ASPARTATE AMINO TRANSFERASE 276 U/L (14-36); BILIRUBIN,DIRECT 0.7 mg/dL (0.0-0.4); BILIRUBIN,TOTAL 2.5 mg/dL (0.2-1.3); BLOOD UREA NITROGEN 5 mg/dL (7-20); CALCIUM 8.9 mg/dL (8.4-10.2); CARBON DIOXIDE 25 mmol/L (22-30); CHLORIDE 105 mmol/L (98-107); CREATININE RESULT 0.75 mg/dL (0.52-1.25); GLUCOSE 121 mg/dL (75-110); POTASSIUM 3.9 mmol/L (3.6-5.0); SODIUM 140.7 mmol/L (137-145); TOTAL PROTEIN 5.5 g/dL (6.3-8.2)
[2016-12-19] MEDS ORDERED: LIDOCAINE 1% INJ-PF (10 MG/ML) 30 ML SDV ONE (06:53)
[2016-12-19] MEDS ORDERED: BUPIVACAINE HCL 0.5%-EPI 1:200000 INJ/PF 30 ML VIAL ONE (06:53)
[2016-12-19] MEDS ORDERED: FENTANYL CITRATE INJ/PF 250 MCG/5 ML AMPULE ONE (09:00)
[2016-12-19] MEDS ORDERED: MIDAZOLAM 2 MG/2 ML INJ ONE (09:01)
[2016-12-19] MEDS ORDERED: PROPOFOL INJ 200 MG/20 ML VIAL IV ONE (09:01)
[2016-12-19] MEDS ORDERED: ACETAMINOPHEN 100 ML IV ONE (09:01)
[2016-12-19] MEDS ORDERED: DIPHENHYDRAMINE HCL 50 MG/ML VIAL IV PRN (09:39)
[2016-12-19] MEDS ORDERED: OXYCODONE-ACETAMINOPHEN 5-325 MG TABLET PO PRN ×2 (09:39)
[2016-12-19] MEDS ORDERED: PROMETHAZINE HCL INJ 25 MG/1 ML VIAL IV PRN ×2 (09:39)
[2016-12-19] MEDS ORDERED: FENTANYL CITRATE INJ/PF 100 MCG/2 ML AMPUL IV PRN ×3 (09:39)
[2016-12-19] MEDS ORDERED: MEPERIDINE HCL/PF INJ 25 MG/1 ML DISP.SYRIN IV PRN (09:39)
[2016-12-19] MEDS ORDERED: MORPHINE SULFATE 10 MG/ML INJ IV PRN (09:39)
[2016-12-19] MEDS ORDERED: ONDANSETRON HCL INJ/PF 4 MG/2 ML SDV IV PRN (09:39)
[2016-12-19] MEDS ORDERED: METOCLOPRAMIDE HCL INJ/PF 10 MG/2 ML SDV ONE (10:39)
[2016-12-19] MEDS ORDERED: GLYCOPYRROLATE INJ 0.4 MG/2 ML VIAL ONE (10:39)
[2016-12-19] MEDS ORDERED: SUCCINYLCHOLINE CHLORIDE INJ 200 MG/10 ML VIAL ONE (10:39)
[2016-12-19] MEDS ORDERED: ONDANSETRON HCL INJ/PF 4 MG/2 ML SDV ONE (10:39)
[2016-12-19] MEDS ORDERED: NEOSTIGMINE METHYLSULFATE 10 MG/10 ML VIAL ONE (10:39)
[2016-12-19] MEDS ORDERED: LIDOCAINE 2% INJ-PF (20 MG/ML) 10 ML AMPUL ONE (10:39)
[2016-12-19] MEDS ORDERED: DEXAMETHASONE SOD PHOSPHATE INJ 4 MG/1 ML VIAL ONE (10:39)
[2016-12-19] MEDS ORDERED: VECURONIUM BROMIDE INJ 10 MG VIAL IV ONE (10:39)
[2016-12-19] MEDS ORDERED: FENTANYL CITRATE INJ/PF 100 MCG/2 ML AMPUL ONE (10:48)
--- NOTE | 2016-12-19 11:03 | OPERATIVE REPORT E ---
Operative Report NAME: ANGE DONG : 1985 AGE: 31Y DATE OF SURGERY: 12/19/2016 ROOM: 212 PREOPERATIVE DIAGNOSES: 1. CHRONIC CHOLECYSTITIS WITH CHOLELITHIASIS. 2. COMMON BILE DUCT STONE, STATUS POST ERCP. POSTOPERATIVE DIAGNOSES: 1. CHRONIC CHOLECYSTITIS WITH CHOLELITHIASIS. 2. COMMON BILE DUCT STONE, STATUS POST ERCP. OPERATION: Laparoscopic cholecystectomy. SURGEON: NICK KAHN M.D. ANESTHESIA: General INDICATIONS FOR PROCEDURE: Patient presents with epigastric pain. She had elevated liver function tests. An ERCP was performed which removed common bile duct stones. She is now here to undergo a laparoscopic cholecystectomy. FINDINGS OF PROCEDURE: Patient had a gallbladder containing several gallstones. PROCEDURE: After informed consent was obtained, patient taken to operating room and placed in supine position. General endotracheal anesthesia was administered. The patient's abdomen was then prepped and draped in the usual sterile fashion. Prior to making any abdominal incisions, skin was injected with 0.25% Marcaine. An infraumbilical incision was made to the skin using a scalpel. A 5-mm Optiview trocar was inserted through incision, through the fascia and into the abdominal cavity under direct vision. The abdomen was then insufflated. Looking inside, no injuries are noted. Three 5-mm ports were then placed in right quadrant and the 5-mm ports were switched to a 12-mm port at the umbilicus under direct vision. The fundus of the gallbladder was then grasped and lifted anterior and superiorly, exposing the [place]. There are some omental adhesions to the Laura area of the gallbladder, which were taken down using cautery. Cystic duct/gallbladder junction was visualized. The cystic artery was identified, isolated, clipped proximally and distally and then divided. Critical view had been obtained of the [place] to ensure cystic duct/gallbladder junction was well visualized. Clips were then placed proximally and distally along the cystic duct width, then being divided. Gallbladder was then dissected off the gallbladder bed using electrocautery, placed in an Endo bag and removed through the umbilical port. The right upper quadrant was thoroughly irrigated and no bleeding was noted. The ports were then removed and no bleeding was noted at the port sites, with the abdomen then being desufflated. The umbilical fascial defect was closed using #0 Vicryl sutures. Skin incisions were closed using 4-0 Monocryl subcuticular stitch. Dermabond was then applied. The patient was then awakened, extubated and taken from the operating room in stable condition. ESTIMATED BLOOD LOSS: Less than 5 mL. COMPLICATIONS: None. CONDITION OF THE PATIENT AT THE END OF PROCEDURE: Is stable. SPECIMENS: Gallbladder and gallstones. DRAINS/PACKS: None. CLASSIFICATION OF WOUND: Clean-contaminated. DICTATING PHYSICIAN: NICK KAHN M.D. [id number] PHY#: [id number] ID: [id number] JOB#: [id number] ACCT: [id number] cc:NICK KAHN M.D. >
[2016-12-19] MEDS ORDERED: HYDROCODONE/ACETAMINOPHEN 5-325 MG TABLET PO PRN ×2 (11:52)
[2016-12-19] MEDS: PANTOPRAZOLE SODIUM 40 MG VIAL IV SCH (11:59)
[2016-12-19 20:08] VITALS: BP 108/64
--- NOTE | 2016-12-20 08:38 | DISCHARGE SUMMARY E ---
Discharge Summary NAME: ANGE DONG : 1985 AGE: 31Y ADMITTED: 12/18/2016 DISCHARGED: 12/19/2016 REASON FOR ADMISSION: Epigastric pain. HISTORY OF PRESENT ILLNESS: The patient is a 31-year-old female who presents with epigastric pain for the last 2-3 days. She was initially seen in the emergency room and it was felt to be gastritis and discharged home. She returns with continued right upper quadrant abdominal pain. Ultrasound revealed gallstones with minimally elevated LFTs and white blood cell count. PRINCIPAL DIAGNOSES: 1. Choledocholithiasis. 2. Chronic cholecystitis with cholelithiasis. CONSULTATION: A gastroenterology consult was obtained for the common bile duct stones. PROCEDURES: 1. The patient underwent an ERCP on 12/18/16. 2. The patient underwent laparoscopic cholecystectomy on 12/19/16. HOSPITAL COURSE: The patient was admitted to the hospital and had her liver function test followed. Her liver test had increased the day after admission. A hepatobiliary scan showed no excretion of tracer into the biliary tree. It is felt that this is due to a common bile duct stone rather than acute cholecystitis or hepatitis. A gastroenterology consult was obtained in which an ERCP with sphincterotomy and stone extraction was performed on 12/18/16. She was then taken to surgery on 12/19/16 and underwent laparoscopic cholecystectomy that was uneventful. She was then transferred to the floor in stable condition. She was started on liquid diet along with oral pain medications, which she tolerated. She was then discharged home later on the day in stable condition. DISCHARGE PROGRAM: Patient will be discharged home. Follow up in surgical clinic in 1-2 weeks. Full liquids, advance to regular as tolerated. May shower in the a.m. Would not recommend driving for 5-7 days or while on oral pain medication. DISCHARGE MEDICATIONS: [place] 5/325 mg 1 to 2 p.o. q. 4-6 hours p.r.n. pain. DICTATING PHYSICIAN: NICK KHAN M.D. [id number] PHY#: [id number] ID: [id number] JOB#: [id number] ACCT: [id number] cc:Hali ARAYA F.N.P. >
== END 2016-12-19 21:00 | disposition home or self-care (01) | DRG 419 ==
LOC: ER 10:24 → EH 21:04 → UNDOADMOB 21:04 → OBSVTOIN 21:04 → INTOOBSV 21:04 → EH 23:00 → 2N 12-18 05:52 → OBSVTOIN 12-18 18:18 → 2N 12-18 18:18 → EH 12-18 18:18
PROVIDERS: ATTEND Surgery
PROC: 0FC98ZZ Extirpation of Matter from Common Bile Duct, Via Natural or Artificial Opening Endoscopic (ICD-10-PCS; 2016-12-18 17:00)
PROC: 0FT44ZZ Resection of Gallbladder, Percutaneous Endoscopic Approach (ICD-10-PCS; principal; 2016-12-19 09:15)
DX: K80.64 Calculus of gallbladder and bile duct with chronic cholecystitis without obstruction (principal); K82.8 Other specified diseases of gallbladder
CPT/HCPCS: 36415; 43262; 43264; 74328; 76705; 78226; 790; 80053; 80074; 81001; 83690; 84703; 85025; 85027; 87040; 87086; 88304; 96365; 96375; 99285; A9537; G0378; J0131; J0171; J0295; J0330; J1100; J1170; J1610; J2250; J2270; J2310; J2405; J2704; J2765; J3010; J3490; J7030; Q9969; S0164

== ENCOUNTER 2018-05-25 18:29 | Emergency (ER) | payer BC ==
[2018-05-25 18:41] VITALS: BP 119/69
[2018-05-25] MEDS ORDERED: PREDNISONE 20 MG TABLET PO ONE (19:59)
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
== END 2018-05-25 20:15 | disposition home or self-care (01) ==
LOC: ER 18:29
DX: L25.5 Unspecified contact dermatitis due to plants, except food (principal); Z90.49 Acquired absence of other specified parts of digestive tract
CPT/HCPCS: 99283; J7512

== ENCOUNTER 2019-03-18 08:50 | Emergency (ER) | payer BC ==
[2019-03-18 08:55] VITALS: BP 111/61
[2019-03-18] MEDS ORDERED: PREDNISONE 20 MG TABLET PO ONE (09:18)
[2019-03-18] MEDS ORDERED: CEPHALEXIN 500 MG CAPSULE PO ONE (09:19)
--- NOTE | 2019-03-18 09:27 | ER Document Report ---
HPI - HPI Patient complains to provider of: poison rohini Time Seen by Provider: 03/18/19 09:18 Pain Level: Denies Context: 34-year-old female with no significant medical history presents the emergency department with rash on her bilateral forearms and her left cheek. Patient states she is very susceptible to poison rohini and gets up 4-5 times per year and suspects this occurred again. She said she was outside mowing the lawn on Saturday and did her best to try avoiding any allergens or vegetation. On Saturday she noticed a rash on her bilateral anterior forearms and mild swelling of her left eyelid and cheek. Today got acutely worse and the rashes spread up her arms on her left neck and the nape of her neck, and she has more edema of her left cheek that is now right eyelid. She states it itches. She denies fevers or chills, she denies any vision changes, denies itchy or scratchy eyes, denies photophobia, extraocular movements intact, no scleral injection. No other complaints. - CONSTITUTIONAL Constitutional: DENIES: Fever, Chills - EENT EENT: DENIES: Sore Throat, Ear Pain, Eye problems - NEURO Neurology: DENIES: Headache, Weakness, Vision blurred, Dizzinesss / Vertigo - CARDIOVASCULAR Cardiovascular: DENIES: Chest pain - RESPIRATORY Respiratory: DENIES: Trouble Breathing, Coughing - GASTROINTESTINAL Gastrointestinal: DENIES: Abdominal Pain, Black / Bloody Stools - URINARY Urinary: DENIES: Dysuria, Urgency, Frequency - REPRODUCTIVE Reproductive: DENIES: : - MUSCULOSKELETAL Musculoskeletal: DENIES: Extremity pain Past Medical History - Social History Smoking Status: Unknown if Ever Smoked Chew tobacco use (# tins/day): No Frequency of alcohol use: None Drug Abuse: None Family History: Reviewed & Not Pertinent Patient has suicidal ideation: No Patient has homicidal ideation: No Neurological Medical History: Denies: Hx Seizures Renal/ Medical History: Denies: Hx Peritoneal Dialysis Past Surgical History: Reports: Hx Cholecystectomy. Denies: Hx Hysterectomy Vertical Provider Document - CONSTITUTIONAL Notes: PHYSICAL EXAMINATION: Reviewed vital signs and charting by RN GENERAL: Alert, interacts well. No acute distress. HEAD: Mild edema and erythema of the left maxillary area, left eye lid, right eyelid with some mild erythema. EYES: Pupils equal and round. Extraocular movements intact. No scleral injection ENT: Oral mucosa moist, tongue midline. NECK: Full range of motion. Trachea midline. LUNGS: Clear to auscultation bilaterally, no wheezes, rales, or rhonchi. No respiratory distress. HEART: Regular rate and rhythm. No murmur ABDOMEN: soft, non-tender. No distention. Bowel sounds present EXTREMITIES: Moves all 4 extremities spontaneously. No edema, No cyanosis. PSYCH: Normal affect, normal mood. SKIN: Warm, dry, normal turgor. Bilateral rash covering anterior arms from the antecubital area to the wrists, slightly raised and erythematous, similar rash on the left side of her neck and on her posterior neck, erythema of the left maxillary region and left eyelid - INFECTION CONTROL TRAVEL OUTSIDE OF THE [place] IN LAST 30 DAYS: No COUNTRY TRAVELED TO/FROM: [facility] Course - Re-evaluation Re-evalutation: 03/18/19 09:27 Symptoms consistent with poison rohini, differential includes alternative contact dermatitis, no purpura or petechiae patient is afebrile concern for dangerous rash. Patient sclera are clear there is no scleral injection I have low concern that there is eye involvement and it is limited to just the soft tissue surrounding the eye. It does appear like a very mild cellulitis on top of the steroid taper I am prescribing a short course of Keflex to ensure there is no secondary infection. Patient understands the plan and agrees with it. She is stable for discharge. - Vital Signs Vital signs: Temp Pulse Resp BP Pulse Ox 98.1 F 77 20 111/61 100 03/18/19 08:54 03/18/19 08:54 03/18/19 08:54 03/18/19 08:54 03/18/19 08:54 Discharge - Discharge Clinical Impression: Poison rohini dermatitis, Cellulitis, face Condition: Good Disposition: HOME, SELF-CARE Additional Instructions: Your being seen today for poison oak/rohini. Please take the steroid taper as directed. Also, we are treating you for a mild cellulitis of your face. It is unclear if this is just a reaction to the rash but to be on the safe side a 5- day course of antibiotics is appropriate to ensure that it does not become infected. Please take the medication 4 times per day for 5 days. Return for any difficulty breathing, vomiting, passing out, or any other symptoms that are worrisome to you. Steroid taper should be taken as follows: Days 1-7: 60mg PO daily Days 8-14: 40mg PO daily Days 15-21: 20mg PO daily Prescriptions: Cephalexin Monohydrate [Keflex 500 mg Capsule] 500 mg PO QID #28 capsule Prednisone [Deltasone 20 mg Tablet] 20 mg PO DAILY 21 Days #42 tablet Forms: Return to Work Referrals: NAOMI RAMÍREZ MD [Primary Care Provider] - Follow up as needed
== END 2019-03-18 09:24 | disposition home or self-care (01) ==
LOC: ER 08:50
DX: L23.7 Allergic contact dermatitis due to plants, except food (principal); L03.211 Cellulitis of face
CPT/HCPCS: 99282; J7512

== ENCOUNTER 2019-09-03 07:14 | Emergency (ER) | payer BC ==
[2019-09-03 08:53] LABS: ABSOLUTE LYMPHOCYTES (AUTO) 1.4 10^3/uL (0.5-4.7); ABSOLUTE MONOCYTES (AUTO) 0.3 10^3/uL (0.1-1.4); ABSOLUTE NEUT (AUTO) 3.8 10^3/uL (1.7-8.2); BASOPHILS % (AUTO) 0.3 % (0-2); EOSINOPHILS % (AUTO) 0.6 % (0-6); HEMATOCRIT 40.2 % (36.0-47.0); HEMOGLOBIN 14.2 g/dL (12.0-15.5); LYMPHOCYTES % (AUTO) 24.8 % (13-45); MEAN CORPUSCULAR HEMOGLOBIN 31.1 pg (27.0-33.4); MEAN CORPUSCULAR HGB CONC 35.2 g/dL (32.0-36.0); MEAN CORPUSCULAR VOLUME 88 fl (80-97); PLATELET COUNT 204 10^3/uL (150-450); RED BLOOD COUNT 4.56 10^6/uL (3.72-5.28); RED CELL DISTRIBUTION WIDTH 12.3 % (11.5-14.0); SEGMENTED NEUTROPHILS % (AUTO) 68.3 % (42-78); TOTAL CELLS COUNTED % (AUTO) 100 %; WHITE BLOOD COUNT 5.5 10^3/uL (4.0-10.5)
[2019-09-03] MEDS ORDERED: ONDANSETRON HCL INJ/PF 4 MG/2 ML SDV IV ONE (09:03)
[2019-09-03] MEDS ORDERED: DEXTROSE 5%-LACTATED RINGERS 1,000 ML IV ONE (09:03)
[2019-09-03] MEDS ORDERED: KETOROLAC TROMETHAMINE INJ/PF 30 MG/1 ML SDV IV ONE (09:03)
[2019-09-03] MEDS ORDERED: NORMAL SALINE 1000 ML 1,000 ML IV ONE (09:03)
[2019-09-03 09:12] LABS: ALBUMIN 4.2 g/dL (3.5-5.0); ALKALINE PHOSPHATASE 55 U/L (38-126); ANION GAP 8 (5-19); ASPARTATE AMINO TRANSFERASE 18 U/L (14-36); BILIRUBIN,DIRECT 0.1 mg/dL (0.0-0.4); BILIRUBIN,TOTAL 0.8 mg/dL (0.2-1.3); BLOOD UREA NITROGEN 7 mg/dL (7-20); CALCIUM 9.2 mg/dL (8.4-10.2); CARBON DIOXIDE 26 mmol/L (22-30); CHLORIDE 107 mmol/L (98-107); GLUCOSE 93 mg/dL (75-110); POTASSIUM 4.1 mmol/L (3.6-5.0); TOTAL PROTEIN 6.8 g/dL (6.3-8.2)
[2019-09-03 09:12] LABS: APPEARANCE,URINE CLEAR; BILIRUBIN,URINE NEGATIVE (NEGATIVE); COLOR,URINE YELLOW; GLUCOSE, URINE NEGATIVE (NEGATIVE); KETONES,URINE NEGATIVE (NEGATIVE); LEUKOCYTE ESTERASE,URINE SMALL (NEGATIVE); NITRITE,URINE NEGATIVE (NEGATIVE); PROTEIN,URINE NEGATIVE (NEGATIVE); URINE SPECIFIC GRAVITY 1.008; UROBILINOGEN,URINE NEGATIVE mg/dL (<2.0)
--- NOTE | 2019-09-03 10:26 | ER Document Report ---
Entered by FRANCOIS CAMILO SCRIBE 09/03/19 0902 Acting as scribe for:SONI FALLON MD ED GI/ - General Chief Complaint: Nausea/Vomiting/Diarrhea Stated Complaint: HEADACHE Time Seen by Provider: 09/03/19 08:55 Notes: This 34 year old female patient presents to the emergency department today with complaints of a persistent headache for the last three days. Patient has multiple other complaints including body aches and cough last week that are no longer present now. Patient states that she developed vomiting two days ago. Patient states that her head hurts behind her eyes. Patient denies fevers or abdominal pain. TRAVEL OUTSIDE OF THE [place] IN LAST 30 DAYS: No COUNTRY TRAVELED TO/FROM: [place] - Related Data Allergies/Adverse Reactions: No Known Allergies Allergy (Verified 09/03/19 07:30) Past Medical History - Social History Smoking Status: Never Smoker Chew tobacco use (# tins/day): No Frequency of alcohol use: None Drug Abuse: None Family History: Reviewed & Not Pertinent Patient has suicidal ideation: No Patient has homicidal ideation: No Neurological Medical History: Denies: Hx Seizures Renal/ Medical History: Denies: Hx Peritoneal Dialysis Past Surgical History: Reports: Hx Cholecystectomy. Denies: Hx Hysterectomy Review of Systems - Review of Systems Constitutional: denies: Fever Respiratory: See HPI, Cough Gastrointestinal: See HPI, Diarrhea, Vomiting. denies: Abdominal pain Musculoskeletal: See HPI, Muscle pain Neurological/Psychological: See HPI, Headaches Physical Exam - Vital signs Vitals: Temp Pulse Resp BP Pulse Ox 98.3 F 80 14 109/71 97 09/03/19 07:17 09/03/19 07:17 09/03/19 07:17 09/03/19 07:17 09/03/19 07:17 Interpretation: Normal - General General appearance: Appears well, Alert - HEENT Head: Normocephalic, Atraumatic Eyes: Normal Pupils: PERRL Mucous membranes: Dry - Respiratory Respiratory status: No respiratory distress Chest status: Nontender Breath sounds: Normal Chest palpation: Normal - Cardiovascular Rhythm: Regular Heart sounds: Normal auscultation Murmur: No - Abdominal Inspection: Normal Distension: No distension Bowel sounds: Normal Tenderness: Nontender Organomegaly: No organomegaly - Back Back: Normal, Nontender - Extremities General upper extremity: Normal inspection. No: Edema General lower extremity: Normal inspection. No: Edema - Neurological Neuro grossly intact: Yes Cognition: Normal Orientation: AAOx4 [place] Coma Scale Eye Opening: Spontaneous [place] Coma Scale Verbal: Oriented Mikhail Coma Scale Motor: Obeys Commands [place] Coma Scale Total: 15 Speech: Normal - Psychological Associated symptoms: Normal affect, Normal mood - Skin Skin Temperature: Warm Skin Moisture: Dry Skin Color: Normal Course - Re-evaluation Re-evalutation: 09/03/19 10:32 The nauseousness is gone. Patient does feel much better. She still has a little bit of headache but it is better than it was. - Vital Signs Vital signs: Temp Pulse Resp BP Pulse Ox 98.3 F 80 14 109/71 97 09/03/19 07:17 09/03/19 07:17 09/03/19 07:17 09/03/19 07:17 09/03/19 07:17 - Laboratory Result Diagrams: 09/03/19 08:30 09/03/19 08:30 Laboratory results interpreted by me: 09/03/19 08:38 Ur Leukocyte Esterase SMALL H Discharge - Discharge Clinical Impression: Viral syndrome, Nausea, vomiting and diarrhea Headache Qualifiers: Headache type: unspecified Headache chronicity pattern: acute headache Intractability: not intractable Qualified Code(s): R51 - Headache Condition: Stable Disposition: HOME, SELF-CARE Additional Instructions: Viral Syndrome The physician has diagnosed a viral infection. Viruses not only cause "colds," but can cause many different symptoms including generalized aching, fever, headache, cough, diarrhea, nausea, vomiting, and fatigue. The treatment, for the most part, is simply relief of symptoms. This means that antibiotics are usually not given. Rest, fluids, pain medications and, occasionally, medication for the specific symptoms that are most bothersome will be prescribed. Use good handwashing to avoid passing the virus to others. Shared toys should be cleaned with disinfectant. Clean the toilets, sinks, and counter surfaces in bathrooms. Launder clothing in hot water. Contact the physician if you develop any new or unusual symptoms such as severe headache, stiff neck, high fever, chest pain, productive cough, or shortness of breath. You should be rechecked if you don't see marked improvement within seven to 10 days. Take the medication as prescribed for nausea. It should also help your headache. Take Tylenol and ibuprofen for headaches. Drink plenty of fluids throughout the day in the evening. Get plenty of rest. Follow-up with a local medical doctor if not improving. RETURN TO THE EMERGENCY ROOM IF ANY NEW OR WORSENING SYMPTOMS. Prescriptions: Metoclopramide HCl [Reglan 10 mg Tablet] 10 mg PO ASDIR PRN #20 tablet PRN Reason: Forms: Return to Work Scribe Attestation: 09/03/19 09:43 I personally performed the services described in the documentation, reviewed and edited the documentation which was dictated to the scribe in my presence, and it accurately records my words and actions. I personally performed the services described in the documentation, reviewed and edited the documentation which was dictated to the scribe in my presence, and it accurately records my words and actions.
[2019-09-03 12:01] VITALS: BP 98/64
== END 2019-09-03 12:01 | disposition home or self-care (01) ==
LOC: ER 07:14
DX: B34.9 Viral infection, unspecified (principal); R11.2 Nausea with vomiting, unspecified; R19.7 Diarrhea, unspecified; R51 Headache; M79.10 Myalgia, unspecified site; R05 Cough
CPT/HCPCS: 99284; 96361; 96374; 96375; 36415; 85025; 80053; 81001; J1885; J2405; J7121; J7030